=== PATIENT | female | born 1940 | race Caucasian/White ===

== ENCOUNTER 2019-11-25 21:28 | Emergency (ER) | payer MEDICARE, OTHER, SELFPAY ==
--- NOTE | 2019-11-25 21:38 | ED_ITS ---
Entered by Madina Pretty, acting as scribe for Dayami Conte DO HPI - General Adult General: Chief complaint: Altered Mental Status Stated complaint: low blood sugar Time Seen by Provider: 11/25/19 21:36 Source: patient and EMS Mode of arrival: EMS Limitations: no limitations History of Present Illness: HPI narrative: 79 yo f came to the er by ems for low blood sugar and low blood pressure. 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 Pt states that she does not have diabetes. Pt states that she has no energy. Pt states that she has not been able to eat for awhile due to diverticulitis. MD complaint: low blood sugar Onset (ago): week(s) Radiation: non-radiation Severity: moderate Relieving factors: none Exacerbating factors: none Associated symptoms: Deny chest pain, dyspnea, headache(s), malaise, nausea, rash or vomiting Treatments prior to arrival: none Review of Systems Const: Denies: malaise Eyes: Denies: change in vision, blurry vision, eye discharge or eye redness ENMT: Denies: throat pain, uvular edema, painful swallowing, mouth pain, dental pain, nasal congestion or facial/sinus pain Card: Denies: chest pain Resp: Denies: shortness of breath GI: Denies: nausea or vomiting : Denies: flank pain, difficulty urinating, painful urination, urinary frequency, urinary urgency or urinary hesitancy Musc: Denies: neck pain, back pain, extremity pain or extremity swelling Skin/Breast: Denies: rash Neuro: Denies: headache Psych: Denies: anxiety, depression, mood swings, panic attacks, sleeping less, suicidal ideation or homicidal ideation Endo: Denies: excessive urination, excessive thirst or tired all the time Mak/Lymph: Denies: easy bruising, petechiae or enlarged lymph nodes All/Imm: Denies: hives, throat swelling, facial swelling, acute wheezing or seasonal allergies PFSH ED PFSH: Statuses (acute, chronic, etc) shown below reflect problem list status as previously entered and may not be historically accurate Social History Smoking and tobacco status: former smoker Physical Exam Const: COMMON NORMALS: no apparent distress, oriented x3, no limitations, healthy appearing, alert and well nourished GENERAL APPEARANCE: cooperative, comfortable, well kempt and well developed ORIENTATION/CONSCIOUSNESS: Yes awake, Yes oriented to person, Yes oriented to place and Yes oriented to time HENMT: COMMON NORMALS: normocephalic, head/scalp atraumatic, hearing grossly normal bilaterally, external ears normal, EAC's normal, TM's normal bilaterally, external nose normal, nasal mucous membranes and turbinates normal, moist oral mucous membranes, oropharynx normal, dentition normal and gingiva normal HEAD & SCALP: normal to inspection, normocephalic and atraumatic FACE & SINUS: normal facial exam NOSE: external nose normal and nasal mucous membranes and turbinates normal EXTERNAL EAR: Yes external ears normal EXTERNAL AUDITORY CANAL: EAC's normal TYMPANIC MEMBRANE: TM's normal bilaterally MOUTH: oral and palatal mucosa normal, lip normal and tongue normal THROAT: no uvular edema Eye: COMMON NORMALS: PERRL, EOMs intact bilaterally, conjunctivae normal, no scleral icterus and normal visual grossman by confrontation GENERAL EYE: normal appearance of both eyes and normal light reflex VISUAL ACUITY: Yes acuity normal ALIGNMENT: Yes alignment normal PERIORBITAL: periorbital findings normal EYELID: eyelids normal CONJUNCTIVA: Yes conjunctivae normal S CLERA: sclerae normal PUPIL: Yes PERRL and Yes accommodation reflex normal DIRECT OPHTHALMOSCOPY: Yes normal light reflex Neck/C-Spine: COMMON NORMALS: full ROM, no lymphadenopathy, supple, no meningeal signs and no JVD GENERAL: Yes normal visual inspection CAROTIDS: Yes normal carotid upstroke CERVICAL SPINE: Yes cervical ROM normal Lymph: LYMPHATIC: no lymphadenopathy noted Chest: COMMONS NORMALS: inspection of chest normal CHEST: Yes symmetrical chest wall rise Resp: COMMON NORMALS: normal respiratory effort, no retractions, no use of accessory muscles and clear to auscultation bilaterally EFFORT & INSPECTION: Yes able to speak in complete sentences and Yes symmetric chest movement AUSCULTATION: clear to auscultation bilaterally Cardio: COMMON NORMALS: no JVD, regular rate, regular rhythm, S1 normal heart sound, S2 normal heart sound, no murmurs and peripheral pulses 2+ throughout RATE: regular rate RHYTHM: regular rhythm HEART SOUNDS: S1 normal and S2 normal PERIPHERAL PULSES: pulses 2+ throughout GI: COMMON NORMALS: normal to inspection, nondistended, normoactive bowel sounds and non-tender : COMMON NORMALS: Yes no CVA tenderness BLADDER/KIDNEY EXAM: Yes no CVA tenderness Back/Pelvis: COMMON NORMALS: no CVA tenderness, thoracic and lumbar spine normal to inspection, no thoracic nor lumbar tenderness and thoraco-lumbar ROM normal Extremity: COMMON NORMALS: normal to inspection, full ROM, normal capillary refill, no calf tenderness and no pedal edema Neuro: COMMON NORMALS: oriented x3, CN's II-XII intact bilaterally, moves all extremities, no focal motor deficits, no sensory deficits noted and gait normal SENSORIUM/ORIENTATION: Yes alert, Yes oriented to person, Yes oriented to place and Yes oriented to time MENINGEAL SIGNS: Yes no meningeal signs SPEECH: speech normal GAIT: Yes normal gait MOTOR EXAM: strength 5/5 throughout, no pronator drift and no tremor noted Psych: COMMON NORMALS: mental status grossly normal, thought process normal, cooperative, affect normal, speech normal and activity/motor behavior normal APPEARANCE: Yes well kempt SPEECH: Yes normal speech THOUGHT PROCESS: normal thought process THOUGHT CONTENT: Yes normal thought content INSIGHT: insight good Skin: COMMON NORMALS: no rashes or lesions noted, no wounds, skin turgor normal and no jaundice GENERAL SKIN EXAM: no rashes or lesions noted and turgor normal Course Vital Signs: Vital signs: Vital Signs Temperature 97.5 F L 11/25/19 21:41 Pulse Rate 107 H 11/25/19 21:41 Respiratory Rate 16 11/25/19 21:41 Blood Pressure 82/47 11/25/19 21:41 Pulse Oximetry 97 11/25/19 21:41 MDM - General Adult Lab Data: Labs: Lab Results 11/25/19 Range/Units 21:45 POC Glucose 75 (70-110) mg/dL Discharge Plan Discharge Condition: Stable Referrals: Amado Larry [Primary Care Provider] - Kirsty Howard [Family Provider] - Coding Level of Care Code ED Mine Expert for Chg Fwd Exam Problem Focused The documentation recorded by the Sukhwinder arce Stephanie Lyn, accurately reflects the service I personally performed and the decisions made by me, Dayami Conte, DO
--- NOTE | 2019-11-25 21:40 | XRR_ITS ---
PROCEDURE INFORMATION: Exam: XR Chest, 1 View Exam date and time: 11/25/2019 9:54 PM Age: 79 years old Clinical indication: Cough TECHNIQUE: Imaging protocol: XR of the chest Views: 1 view. COMPARISON: No relevant prior studies available. FINDINGS: Lungs: Unremarkable. No consolidation. There is mild diffuse fibrosis. There is hyperinflation compatible probable COPD. Pleural space: Unremarkable. No pleural effusion. No pneumothorax. Heart/Mediastinum: Unremarkable. No cardiomegaly. Bones/joints: Unremarkable. XR/XR chest 1V portable [id number] IMPRESSION: No acute findings.
[2019-11-25 21:41] VITALS: BP 82/47; PULSE 107; RESP 16; TEMP 36.4; O2SAT 97; BMI 26.6
--- NOTE | 2019-11-25 21:41 | ECG_ITS ---
Measurements Intervals [place] Rate: 101 P: 69 DE: 215 QRS: 72 QRSD: 146 T: -38 QT: 373 QTc: 486 SINUS TACHYCARDIA WITH FIRST DEGREE AV BLOCK POSSIBLE LEFT ATRIAL ENLARGEMENT [-0.1mV P WAVE IN V1/V2] RIGHT BUNDLE BRANCH BLOCK [120+ ms QRS DURATION, UPRIGHT V1, 40+ ms S IN I/aV I/aVL/V4/V5/V6] MARKED T-WAVE ABNORMALITY, CONSIDER ANTEROLATERAL ISCHEMIA [-0.5+ mV T WAVE IN I/aVL/V3-V6] MODERATE T-WAVE ABNORMALITY, CONSIDER INFERIOR ISCHEMIA [-0.1+ mV T WAVE IN II II/aVF] No previous ECG available for comparison Electronically Signed On 11-26-2019 19:16:29 BURRER HAND by Dori Gomez M.D. [email or web address]
[2019-11-25 21:48] LABS: Glucose Point of Care 75 mg/dL (70-110)
[2019-11-25 22:00] LABS: Basophils # 0.1 10^3/uL (0.0-0.1); Basophils % 0.2 %; Hematocrit 37.8 % (37.0-47.0); Lymphocytes # 1.7 10^3/uL (0.8-4.8); Lymphocytes % 6.3 %; Mean Corpuscular HGB Conc 31.7 g/dL (30.0-36.0); Mean Corpuscular Volume 88.3 fL (81-99); Mean Platelet Volume 11.3 fL (7.4-10.4); Monocytes # 0.2 10^3/uL (0.2-0.9); Monocytes % 0.9 %; Neutrophils % 87.2 %; Nucleated Red Blood Cells # 0.1 /100WBC; Nucleated Red Blood Cells % 0.2 %; Platelet Count 331 10^3/cmm (130-400); Red Blood Count 4.28 10^6/uL (4.1-5.3); Red Cell Distribution Width 14.9 % (12.1-15.1); White Blood Count 26.4 10^3/uL (4.0-10.0)
--- NOTE | 2019-11-25 22:06 | CTR_ITS ---
PROCEDURE INFORMATION: Exam: CT Abdomen And Pelvis Without Contrast Exam date and time: 11/25/2019 10:09 PM Age: 79 years old Clinical indication: Condition or disease; Other: Diverticulitis TECHNIQUE: Imaging protocol: Computed tomography of the abdomen and pelvis without contrast. Total DLP: 535.86 mGy-cm Radiation optimization: All CT scans at this facility use at least one of these dose optimization techniques: automated exposure control; mA and/or kV adjustment per patient size (includes targeted exams where dose is matched to clinical indication); or iterative reconstruction. COMPARISON: No relevant prior studies available. FINDINGS: Tubes, catheters and devices: A balloon bladder catheter is present. Mediastinum: A moderate hiatal hernia is present. Liver: There is a very large heterogeneous expansile mass in the left lobe of the liver measuring 16.1 by 8.7 by 19.7 cm. A few tiny hypodensities in the right lobe of the liver too small to characterize. No duct dilatation. Gallbladder and bile ducts: Normal. No calcified stones. No ductal dilation. Pancreas: Normal. No ductal dilation. Spleen: Normal. No splenomegaly. Adrenals: Normal. No mass. Kidneys and ureters: There is inflammatory perinephric stranding. Renal vascular calcifications versus nonobstructive nephrolithiasis is noted. No hydronephrosis. No obstructing calculi. Stomach and bowel: Mild diverticulosis is present in the distal colon. Mild wall thickening/colitis versus lack of distension of the descending and sigmoid colon is noted. The remaining loops of bowel have an appropriate appearance. Appendix: No evidence of appendicitis. Intraperitoneal space: Unremarkable. No free air. No significant fluid collection. Vasculature: There are numerous benign phleboliths in the pelvis. Severe atherosclerotic changes are noted in the aorta. 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 The left common iliac artery measures 2.6 cm. No abdominal aortic aneurysm. Lymph nodes: Unremarkable.No enlarged lymph nodes. Bladder: The bladder is decompressed. Reproductive: Unremarkable as visualized. Bones/joints: Osteopenia and moderate degenerative changes in the spine are noted. Soft tissues: Unremarkable. CT/CT abdomen pelvis wo con [id number] IMPRESSION: 1. Large septated heterogeneous mass in the left lobe of the liver measuring almost 20 cm in length. MRI would be most sensitive to characterize this large mass. 2. Mild wall thickening/colitis versus lack of distension of the descending and sigmoid colon is noted. No ileus or obstruction. No fluid collection or abscess. 3. 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 Radiation Dose CTDIVOL = (mGy): DLP = 535.86 (mGy-cm)
--- NOTE | 2019-11-25 22:07 | ED_ITS ---
HPI - Altered Mental Status General: Chief Complaint: Altered Mental Status Stated Complaint: low blood sugar Time Seen by Provider: 11/25/19 21:36 Source: patient and EMS Mode of arrival: EMS Limitations: no limitations PFSH ED PFSH: Statuses (acute, chronic, etc) shown below reflect problem list status as previously entered and may not be historically accurate Social History Smoking and tobacco status: former smoker Course ED course: 79-year-old female checked out to me by Dr. GIRALDO. This patient came in with altered mental status, that was mild. She is awake and talking, but mildly confused. She had a low blood pressure, 80s systolic on arrival. Initially she responded to a sepsis bolus, but pressure has sunk back down into the 80s. She has a white blood cell count of 26, lactic acid of 9.5. Her CT shows a 20 cm liver mass, likely an abscess as the source of her sepsis. We do not have interventional radiology services here this weekend. She would need CT-guided biopsy/drainage. She is received Levaquin here. We will start some Flagyl. We are starting Levophed, as her pressure is still low. We have spoken with the plant machinist at [facility] in [place], who is willing to take in transfer. Air services are not available. Consultations: Time: 00:40 Consultation #2: Michelle [facility] ICU Vital Signs: Vital signs: Vital Signs Temperature 97.5 F L 11/25/19 21:41 Pulse Rate 84 11/26/19 03:56 Respiratory Rate 20 H 11/26/19 03:56 Blood Pressure 109/60 11/26/19 03:56 Pulse Oximetry 96 11/26/19 03:56 MDM - Altered Mental Status Lab Data: Labs: Lab Results 11/25/19 11/25/19 11/25/19 Range/Units 21:36 21:45 22:22 WBC 26.4 H (4.0-10.0) 10^3/ uL RBC 4.28 (4.1-5.3) 10^6/u L Hgb 12.0 (11.5-15.3) g/dL Hct 37.8 (37.0-47.0) % MCV 88.3 (81-99) fL MCH 28.0 (28.0-34.0) pg MCHC 31.7 (30.0-36.0) g/dL RDW 14.9 (12.1-15.1) % Plt Count 331 (130-400) 10^3/c mm MPV 11.3 H (7.4-10.4) fL Neut % (Auto) 87.2 % Lymph % (Auto) 6.3 % [place] % (Auto) 0.9 % Eos % (Auto) 0.0 % Baso % (Auto) 0.2 % Neut # (Auto) 23.0 H (1.8-7.7) 10^3/u L Lymph # (Auto) 1.7 (0.8-4.8) 10^3/u L [place] # (Auto) 0.2 (0.2-0.9) 10^3/u L Eos # (Auto) 0.0 (0.0-0.8) 10^3/u L Baso # (Auto) 0.1 (0.0-0.1) 10^3/u L Nucleated RBC % (a uto) 0.2 % Nucleated RBCs # 0.1 /100WBC Specimen Type Sample Site ABG pH (7.35-7.45) ABG pCO2 (35-45) mmHg ABG pO2 (80.0-100.0) mmH g ABG HCO3 (22-26) mmol/L ABG Base Excess (-2.0-2.0) mmol/ L Mehran Test Hematocrit (37-47) % Internet Manager ID Sodium 130 L (136-145) mmol/L Potassium 4.1 (3.5-5.1) mmol/L Chloride 93 L (98-107) mmol/L Carbon Dioxide 12 L (22-29) mmol/L Anion Gap 29.1 H (5-19) BUN 62 H (8-23) mg/dL Creatinine 1.8 H (0.5-0.9) mg/dL Glucose 95 (74-106) mg/dL POC Glucose 75 (70-110) mg/dL Lactate (0.5-2.2) mmol/L Calcium 8.4 L (8.8-10.2) mg/Dl Magnesium 2.2 (1.7-2.3) mg/dL Total Bilirubin 0.6 (0.15-1.2) mg/dL AST 327 H (0-32) U/L ALT 125 H (0-33) U/L Alkaline Phosphata se 275 H (35-105) IU/L Ammonia (11-51) umol/L Total Protein 6.2 L (6.6-8.7) g/dL Albumin 1.8 L (3.5-5.2) g/dL Globulin 4.4 (1.3-4.6) g/dL TSH 5.50 H (0.27-4.20) uIU/ mL Urine Color (Yellow) Urine Appearance (CLEAR) Urine pH (5-7) Ur Specific Gravit y (1.005-1.030) Urine Protein (Negative) Urine Glucose (UA) (Normal) Urine Ketones (Negative) Urine Occult Blood (Negative) Urine Nitrate (Negative) Urine Bilirubin (NEGATIVE) Prot Sulfosalicyli c Acd Urine Urobilinogen (Negative) mg/dL Ur Leukocyte Mey ase (Negative) Urine RBC (0-2) /hpf Urine WBC (0-5) /hpf Ur Squamous Epith Cells (0-5) Amorphous Sediment Urine Bacteria (NONE) Serum Ketones (Negative) Influenza Type A A g (Negative) POC Influenza B Ag (Negative) 11/25/19 11/25/19 11/25/19 Range/Units 22:22 22:22 22:22 WBC (4.0-10.0) 10^3/ uL RBC (4.1-5.3) 10^6/u L Hgb (11.5-15.3) g/dL Hct (37.0-47.0) % MCV (81-99) fL MCH (28.0-34.0) pg MCHC (30.0-36.0) g/dL RDW (12.1-15.1) % Plt Count (130-400) 10^3/c mm MPV (7.4-10.4) fL Neut % (Auto) % Lymph % (Auto) % [place] % (Auto) % Eos % (Auto) % Baso % (Auto) % Neut # (Auto) (1.8-7.7) 10^3/u L Lymph # (Auto) (0.8-4.8) 10^3/u L [place] # (Auto) (0.2-0.9) 10^3/u L Eos # (Auto) (0.0-0.8) 10^3/u L Baso # (Auto) (0.0-0.1) 10^3/u L Nucleated RBC % (a uto) % Nucleated RBCs # /100WBC Specimen Type Sample Site ABG pH (7.35-7.45) ABG pCO2 (35-45) mmHg ABG pO2 (80.0-100.0) mmH g ABG HCO3 (22-26) mmol/L ABG Base Excess (-2.0-2.0) mmol/ L Mehran Test Hematocrit (37-47) % Internet Manager ID Sodium (136-145) mmol/L Potassium (3.5-5.1) mmol/L Chloride (98-107) mmol/L Carbon Dioxide (22-29) mmol/L Anion Gap (5-19) BUN (8-23) mg/dL Creatinine (0.5-0.9) mg/dL Glucose (74-106) mg/dL POC Glucose (70-110) mg/dL Lactate 9.5 H* (0.5-2.2) mmol/L Calcium (8.8-10.2) mg/Dl Magnesium (1.7-2.3) mg/dL Total Bilirubin (0.15-1.2) mg/dL AST (0-32) U/L ALT (0-33) U/L Alkaline Phosphata se (35-105) IU/L Ammonia 46 (11-51) umol/L Total Protein (6.6-8.7) g/dL Albumin (3.5-5.2) g/dL Globulin (1.3-4.6) g/dL TSH (0.27-4.20) uIU/ mL Urine Color (Yellow) Urine Appearance (CLEAR) Urine pH (5-7) Ur Specific Gravit y (1.005-1.030) Urine Protein (Negative) Urine Glucose (UA) (Normal) Urine Ketones (Negative) Urine Occult Blood (Negative) Urine Nitrate (Negative) Urine Bilirubin (NEGATIVE) Prot Sulfosalicyli c Acd Urine Urobilinogen (Negative) mg/dL Ur Leukocyte Mey ase (Negative) Urine RBC (0-2) /hpf Urine WBC (0-5) /hpf Ur Squamous Epith Cells (0-5) Amorphous Sediment Urine Bacteria (NONE) Serum Ketones Negative (Negative) Influenza Type A A g (Negative) POC Influenza B Ag (Negative) 11/25/19 11/25/19 11/26/19 Range/Units 22:30 23:20 00:07 WBC (4.0-10.0) 10^3/ uL RBC (4.1-5.3) 10^6/u L Hgb (11.5-15.3) g/dL Hct (37.0-47.0) % MCV (81-99) fL MCH (28.0-34.0) pg MCHC (30.0-36.0) g/dL RDW (12.1-15.1) % Plt Count (130-400) 10^3/c mm MPV (7.4-10.4) fL Neut % (Auto) % Lymph % (Auto) % [place] % (Auto) % Eos % (Auto) % Baso % (Auto) % Neut # (Auto) (1.8-7.7) 10^3/u L Lymph # (Auto) (0.8-4.8) 10^3/u L [place] # (Auto) (0.2-0.9) 10^3/u L Eos # (Auto) (0.0-0.8) 10^3/u L Baso # (Auto) (0.0-0.1) 10^3/u L Nucleated RBC % (a uto) % Nucleated RBCs # /100WBC Specimen Type Arterial Sample Site Radial, right ABG pH 7.37 (7.35-7.45) ABG pCO2 21.0 L (35-45) mmHg ABG pO2 75.7 L (80.0-100.0) mmH g ABG HCO3 12.1 L (22-26) mmol/L ABG Base Excess -11.3 L (-2.0-2.0) mmol/ L Mehran Test Pos Hematocrit 36.1 L (37-47) % Internet Manager ID [email or web address] Sodium (136-145) mmol/L Potassium (3.5-5.1) mmol/L Chloride (98-107) mmol/L Carbon Dioxide (22-29) mmol/L Anion Gap (5-19) BUN (8-23) mg/dL Creatinine (0.5-0.9) mg/dL Glucose (74-106) mg/dL POC Glucose (70-110) mg/dL Lactate (0.5-2.2) mmol/L Calcium (8.8-10.2) mg/Dl Magnesium (1.7-2.3) mg/dL Total Bilirubin (0.15-1.2) mg/dL AST (0-32) U/L ALT (0-33) U/L Alkaline Phosphata se (35-105) IU/L Ammonia (11-51) umol/L Total Protein (6.6-8.7) g/dL Albumin (3.5-5.2) g/dL Globulin (1.3-4.6) g/dL TSH (0.27-4.20) uIU/ mL Urine Color Brown (Yellow) Urine Appearance Cloudy (CLEAR) Urine pH 9 H (5-7) Ur Specific Gravit y 1.015 (1.005-1.030) Urine Protein 1+ H (Negative) Urine Glucose (UA) Norm (Normal) Urine Ketones Negative (Negative) Urine Occult Blood 3+ H (Negative) Urine Nitrate Negative (Negative) Urine Bilirubin 1+ H (NEGATIVE) Prot Sulfosalicyli c Acd Positive Urine Urobilinogen 4+ H (Negative) mg/dL Ur Leukocyte Mey ase 2+ H (Negative) Urine RBC 5-10 H (0-2) /hpf Urine WBC 25-40 H (0-5) /hpf Ur Squamous Epith Cells 0-4 H (0-5) Amorphous Sediment 1+ Urine Bacteria 4+ H (NONE) Serum Ketones (Negative) Influenza Type A A g Negative (Negative) POC Influenza B Ag Negative (Negative) 11/26/19 11/26/19 Range/Units 00:10 01:02 WBC (4.0-10.0) 10^3/ uL RBC (4.1-5.3) 10^6/u L Hgb (11.5-15.3) g/dL Hct (37.0-47.0) % MCV (81-99) fL MCH (28.0-34.0) pg MCHC (30.0-36.0) g/dL RDW (12.1-15.1) % Plt Count (130-400) 10^3/c mm MPV (7.4-10.4) fL Neut % (Auto) % Lymph % (Auto) % [place] % (Auto) % Eos % (Auto) % Baso % (Auto) % Neut # (Auto) (1.8-7.7) 10^3/u L Lymph # (Auto) (0.8-4.8) 10^3/u L [place] # (Auto) (0.2-0.9) 10^3/u L Eos # (Auto) (0.0-0.8) 10^3/u L Baso # (Auto) (0.0-0.1) 10^3/u L Nucleated RBC % (a uto) % Nucleated RBCs # /100WBC Specimen Type Sample Site ABG pH (7.35-7.45) ABG pCO2 (35-45) mmHg ABG pO2 (80.0-100.0) mmH g ABG HCO3 (22-26) mmol/L ABG Base Excess (-2.0-2.0) mmol/ L Mehran Test Hematocrit (37-47) % Internet Manager ID Sodium (136-145) mmol/L Potassium (3.5-5.1) mmol/L Chloride (98-107) mmol/L Carbon Dioxide (22-29) mmol/L Anion Gap (5-19) BUN (8-23) mg/dL Creatinine (0.5-0.9) mg/dL Glucose (74-106) mg/dL POC Glucose 85 84 (70-110) mg/dL Lactate (0.5-2.2) mmol/L Calcium (8.8-10.2) mg/Dl Magnesium (1.7-2.3) mg/dL Total Bilirubin (0.15-1.2) mg/dL AST (0-32) U/L ALT (0-33) U/L Alkaline Phosphata se (35-105) IU/L Ammonia (11-51) umol/L Total Protein (6.6-8.7) g/dL Albumin (3.5-5.2) g/dL Globulin (1.3-4.6) g/dL TSH (0.27-4.20) uIU/ mL Urine Color (Yellow) Urine Appearance (CLEAR) Urine pH (5-7) Ur Specific Gravit y (1.005-1.030) Urine Protein (Negative) Urine Glucose (UA) (Normal) Urine Ketones (Negative) Urine Occult Blood (Negative) Urine Nitrate (Negative) Urine Bilirubin (NEGATIVE) Prot Sulfosalicyli c Acd Urine Urobilinogen (Negative) mg/dL Ur Leukocyte Mey ase (Negative) Urine RBC (0-2) /hpf Urine WBC (0-5) /hpf Ur Squamous Epith Cells (0-5) Amorphous Sediment Urine Bacteria (NONE) Serum Ketones (Negative) Influenza Type A A g (Negative) POC Influenza B Ag (Negative) Critical Care Time Critical Care Time: Critical Care Time: Yes Total Critical Care Time: 90 Attestation: This case had a high probability of a clinically significant, sudden, or life threatening deterioration of this patient's condition which required my full and direct attention, intervention and personal management. Discharge Plan Discharge Patient Disposition: Xfer Other Clinical Impression: Liver mass, left lobe Sepsis Qualifiers: Sepsis type: sepsis due to unspecified organism Sepsis acute organ dysfunction status: unspecified Qualified Code(s): A41.9 - Sepsis, unspecified organism Condition: Critical Discharge Orders: Transfer Out of Facility (Order); Ordered 11/26/19 Ordered By: Chacho Wright Referrals: Kirsty Howard [Family Provider] - Amado Larry [Primary Care Provider] - Discharge Date/Time: 11/26/19 03:57 Coding Level of Care Code ED Catering Barista for Bob Edmonds
[2019-11-25 22:22] LABS: Slide Review Slide Review Perform
--- NOTE | 2019-11-25 22:23 | CTR_ITS ---
PROCEDURE INFORMATION: Exam: CT Head Without Contrast Exam date and time: 11/25/2019 10:30 PM Age: 79 years old Clinical indication: Altered mental status/memory loss; Confusion or disorientation; Additional info: AMS TECHNIQUE: Imaging protocol: Computed tomography of the head without contrast. Total DLP: 827.14 mGy-cm Radiation optimization: All CT scans at this facility use at least one of these dose optimization techniques: automated exposure control; mA and/or kV adjustment per patient size (includes targeted exams where dose is matched to clinical indication); or iterative reconstruction. COMPARISON: No relevant prior studies available. FINDINGS: Brain: There is diffuse volume loss and periventricular low-density compatible with small-vessel disease changes. No edema or mass effect. Ventricles: Normal. No ventriculomegaly. Bones/joints: Unremarkable. No acute fracture. Sinuses: There is patchy opacification of the right maxillary sinus. The remaining sinuses are clear. Mastoid air cells: Visualized mastoid air cells are well aerated. Soft tissues: Unremarkable. Other findings: No acute hemorrhage. CT/CT head wo con* [id number] IMPRESSION: 1. No acute intracranial abnormality. 2. Patchy opacification of the right maxillary sinus. Radiation Dose CTDIVOL = (mGy): DLP = 827.14 (mGy-cm)
[2019-11-25] MEDS: D5-NS 0.45% + KCL 20 mEq 20 MEQ/1,000 ML BAG 150 MEQ IV (22:25)
[2019-11-25 22:46] LABS: Ketone (Acetest) Serum Negative (Negative)
[2019-11-25 22:46] LABS: ABG PH Result 7.37 (7.35-7.45); Arterial Blood Gas Hematocrit 36.1 % (37-47); Base Excess ABG -11.3 mmol/L (-2.0-2.0); Blood Gas Allen Test Pos; Blood Gas Sample Site Radial, right; Blood Gas Sample Type Arterial; HCO3 ABG 12.1 mmol/L (22-26); PO2 ABG 75.7 mmHg (80.0-100.0)
[2019-11-25 22:55] LABS: Ammonia 46 umol/L (11-51)
[2019-11-25 23:06] LABS: Alanine Aminotransferase 125 U/L (0-33); Albumin Level 1.8 g/dL (3.5-5.2); Alkaline Phosphatase 275 IU/L (35-105); Anion Gap 29.1 (5-19); Aspartate Amino Transferase 327 U/L (0-32); Blood Urea Nitrogen 62 mg/dL (8-23); Calcium 8.4 mg/Dl (8.8-10.2); Carbon Dioxide 12 mmol/L (22-29); Chloride 93 mmol/L (98-107); Globulin 4.4 g/dL (1.3-4.6); Glucose 95 mg/dL (74-106); Magnesium 2.2 mg/dL (1.7-2.3); Potassium 4.1 mmol/L (3.5-5.1); Sodium 130 mmol/L (136-145); Total Bilirubin 0.6 mg/dL (0.15-1.2); Total Protein 6.2 g/dL (6.6-8.7)
[2019-11-25 23:30] VITALS: BP 85/53; PULSE 87; RESP 18; O2SAT 98
[2019-11-25 23:33] LABS: Lactate (Lactic Acid level) 9.5 mmol/L (0.5-2.2)
--- NOTE | 2019-11-25 23:38 | PC.NURSE ---
Patient had positive stool hemoccult, Dr. Wright advised
[2019-11-25 23:47] LABS: Urine Color Brown (Yellow)
[2019-11-25 23:48] LABS: Add Urine Microscopic? YES; Bacteria Urine 4+; Bilirubin Urine 1+ (NEGATIVE); Blood Urine 3+ (Negative); Glucose Urine UA Norm (Normal); Ketones Urine Negative (Negative); Leukocyte Esterase Urine 2+ (Negative); Nitrate Urine Negative (Negative); Protein Urine 1+ (Negative); Specific Gravity, Urine 1.015 (1.005-1.030); Squamous Epithelial Cell Urine 0-4 (0-5); Sulfosalicylic Acid Urine Positive; Urine Appearance Cloudy (CLEAR); Urobilinogen Urine 4+ mg/dL (Negative); WBC Urine 25-40 /hpf (0-5); pH Urine 9 (5-7)
[2019-11-25 23:49] LABS: Add Urine Culture? Yes; Amorphous Sediment Urine 1+
[2019-11-26] VITALS (8 sets, daily range): BP systolic 79–109; BP diastolic 32–60; PULSE 76–97; RESP 16–20; O2SAT 94–97
[2019-11-26] MEDS: sodium chloride 0.9% 2,177.25 ML 2177.3 ML IV (00:11)
[2019-11-26 00:13] LABS: Glucose Point of Care 85 mg/dL (70-110)
[2019-11-26] MEDS: levofloxacin-dextrose 5 % 500 MG/100 ML PREMIX 100 MG IV (00:18)
--- NOTE | 2019-11-26 00:19 | PC.NURSE ---
glucose 91
--- NOTE | 2019-11-26 00:20 | PC.NURSE ---
glucose 85
--- NOTE | 2019-11-26 00:21 | PC.NURSE ---
patient bedding changed due to being soiled
[2019-11-26 00:53] LABS: Influenza A by IFA Negative (Negative); Influenza B by IFA Negative (Negative)
--- NOTE | 2019-11-26 01:03 | PC.NURSE ---
glucose 84
[2019-11-26 01:07] LABS: Glucose Point of Care 84 mg/dL (70-110)
[2019-11-26] MEDS: fentaNYL 50 mcg/mL INJ 2mL 100 MCG IVP (01:45)
--- NOTE | 2019-11-26 02:05 | XRR_ITS ---
PROCEDURE INFORMATION: Exam: XR Chest, 1 View Exam date and time: 11/26/2019 2:13 AM Age: 79 years old Clinical indication: Device placement; Other: Central line; Additional info: Post-central line placement TECHNIQUE: Imaging protocol: XR of the chest Views: 1 view. COMPARISON: CR XR chest 1V portable [id number] 11/25/2019 9:44 PM FINDINGS: Tubes, catheters and devices: There is a right internal jugular vein central venous line present with its tip at the level of the right atrium. Lungs: There is a background of emphysema and parenchymal fibrosis. Pleural space: Unremarkable. No pleural effusion. No pneumothorax. Heart/Mediastinum: Unremarkable. No cardiomegaly. Bones/joints: Unremarkable. XR/XR chest 1V portable [id number] IMPRESSION: 1. The right internal jugular vein central venous line tip is in the right atrium. 2. Background of emphysema and parenchymal fibrosis.
--- NOTE | 2019-11-26 02:09 | PC.NURSE ---
Dr. Wright placed triple lumen central line in right IJ with ultrasound guidance, sterile technique used, patient tolerated well, xray confirmation pending
--- NOTE | 2019-11-26 02:30 | PC.NURSE ---
0136 CALLED REPORT TO TERRNECE WEIR RN AT [facility]
--- NOTE | 2019-11-26 03:45 | PC.NURSE ---
Report given to Development Chemist
== END 2019-11-26 03:57 | disposition other institution (70) ==
PROVIDERS: Emergency Medicine; Emergency Provider Emergency Medicine; Family Provider Nurse Practitioner Family; PCP Family Medicine
DX: A41.9 Sepsis, unspecified organism (principal); R16.0 Hepatomegaly, not elsewhere classified; Z87.891 Personal history of nicotine dependence
CPT/HCPCS: 36416; 36600; 51702; 70450; 71045; 74176; 80053; 81003; 82009; 82140; 82274; 82803; 82962; 83605; 83630; 83735; 84443; 85025; 87077; 87086; 87186; 87493; 87505; 87804; 93005; 96360; 96361; 96365; 96374; 99284; J1956; J3010; J7030

== ENCOUNTER 2019-12-14 21:16 | Inpatient (IN) | payer MEDICARE, OTHER, SELFPAY ==
--- NOTE | 2019-12-14 21:20 | ED_ITS ---
Entered by Karen Escobar, acting as scribe for HPI - Chest Pain General: Chief Complaint: Chest Pain Stated Complaint: SOB/ CHEST PAIN Time Seen by Provider: 12/14/19 21:18 Source: patient and EMS Mode of arrival: ambulatory Limitations: no limitations History of Present Illness: HPI narrative: Chelsey is a nice 79-year-old female who comes in after she got [facility]. She states the symptoms lasted for 30 minutes but resolved after she was given aspirin and placed on oxygen by EMS. She denies anything similar in the past. She is aware of anything that made her symptoms better or worse. Patient denies any history of heart problems or congestive heart failure but she does have a history of COPD. She denies any cough or wheezing. 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) Timing of current episode: now resolved Prior episodes: No Onset: during rest Pain location: substernal Severity: mild Quality: heaviness and other (pressure) Relieving factors: nothing Exacerbating factors: nothing Context: recent surgery (liver surgery) Associated symptoms: Reports dyspnea; Deny abdominal pain, diaphoresis, fever(s), nausea, palpitations, syncope or vomiting Treatment prior to arrival: oxygen Review of Systems General: Reports: other (negative unless marked) Const: Denies: fever, chills, body aches, fatigue, malaise or diaphoresis Eyes: Denies: change in vision or blurry vision ENMT: Denies: throat pain, painful swallowing, hoarseness, ear pain, ear discharge, Change in hearing or nasal discharge Card: Denies: chest pain, palpitations, irregular heart rhythm, syncope, pre- syncope, shortness of breath on exertion or shortness of breath when lying down Resp: Reports: shortness of breath GI: Denies: abdominal pain, nausea, vomiting, vomiting blood, coffee grounds in vomit, diarrhea, constipation, cramping, blood in stool or black tarry stool : Denies: flank pain, painful urination, urinary frequency, urinary urgency, decreased urine ouput, urinary incontinence or blood in urine Musc: Denies: neck pain, back pain, extremity pain, extremity swelling, joint pain, joint swelling, joint warmth or joint stiffness Skin/Breast: Denies: rash, skin tenderness or yellow skin Neuro: Denies: headache, numbness in extremities, weakness in extremities, changes in sensation, lack of coordination, difficulty walking, dizziness, vertigo or confusion Endo: Denies: excessive thirst, tired all the time, cold intolerance, excessive sweating, flushing or hot flashes Mak/Lymph: Denies: easy bruising, easy bleeding, petechiae or enlarged lymph nodes All/Imm: Denies: acute wheezing PFSH ED PFSH: Statuses (acute, chronic, etc) shown below reflect problem list status as previously entered and may not be historically accurate Medical History (Updated 12/15/19 @ 01:09 by Anabela Merchant MD) Abnormal findings on diagnostic imaging of heart and coronary circulation (Acute) Abscess of liver (Acute) Aneurysm of iliac artery (Acute) Bacteremia (Acute) Chronic obstructive pulmonary disease, unspecified (Acute) Dyslipidemia (Acute) Glaucoma (Acute) Hypoglycemia, unspecified (Acute) Hypokalemia (Acute) Internal hemorrhoids (Acute) Leukemoid reaction (Acute) Liver abscess (Acute) Nonspecific elevation of levels of transaminase and lactic acid dehydrogenase [ldh] (Acute) Osteoporosis (Acute) Ovarian cancer (Acute) Pulmonary fibrosis, unspecified (Acute) Streptococcal infection, unspecified site (Acute) Syncope (Acute) Surgical History (Updated 12/14/19 @ 23:58 by Anabela Merchant MD) H/O hysterectomy with oophorectomy (Acute) H/O removal of cyst (Acute) Hx of cholecystectomy (Acute) Family History (Updated 12/14/19 @ 23:59 by Anabela Merchant MD) Father CAD (coronary artery disease) Social History (Updated 12/14/19 @ 23:58 by Anabela Merchant MD) Smoking and tobacco status: current every day smoker Alcohol intake: never Substance/Drug Use: never Housing: [facility] Physical Exam Const: COMMON NORMALS: no apparent distress, oriented x3, no limitations, healthy appearing and well nourished EXAM LIMITATIONS: no altered mental status GENERAL APPEARANCE: cooperative, well kempt and well developed ORIENTATION/CONSCIOUSNESS: Yes awake HENMT: COMMON NORMALS: normocephalic, head/scalp atraumatic, hearing grossly normal bilaterally, external ears normal, EAC's normal, external nose normal and moist oral mucous membranes HEAD & SCALP: normal to inspection, normocephalic and atraumatic FACE & SINUS: normal facial exam and face symmetric NOSE: external nose normal and nares normal EXTERNAL EAR: Yes external ears normal EXTERNAL AUDITORY CANAL: EAC's normal MOUTH: oral and palatal mucosa normal and tongue normal Eye: COMMON NORMALS: PERRL, EOMs intact bilaterally, conjunctivae normal and no scleral icterus GENERAL EYE: normal appearance of both eyes and normal light reflex CONJUNCTIVA: Yes conjunctivae normal SCLERA: sclerae normal CORNEA: Yes corneas normal PUPIL: Yes PERRL DIRECT OPHTHALMOSCOPY: Yes normal light reflex Neck/C-Spine: COMMON NORMALS: full ROM, no lymphadenopathy, supple, no meningeal signs and no JVD GENERAL: Yes normal visual inspection and Yes t rachea midline CERVICAL SPINE: Yes cervical ROM normal Chest: COMMONS NORMALS: inspection of chest normal and palpation of chest normal Resp: COMMON NORMALS: normal respiratory effort, no retractions, no use of accessory muscles and clear to auscultation bilaterally EFFORT & INSPECTION: Yes able to speak in complete sentences AUSCULTATION: clear to auscultation bilaterally Cardio: COMMON NORMALS: no JVD, regular rate, regular rhythm, S1 normal heart sound, S2 normal heart sound, no gallops, no clicks, no murmurs and no rub JUGULAR VENOUS DISTENTION: no JVD RATE: regular rate RHYTHM: regular rhythm HEART SOUNDS: S1 normal and S2 normal GI: COMMON NORMALS: soft to palpation, non-tender, no hepatosplenomegaly and no masses INSPECTION: Yes normal to inspection PALPATION: Yes soft and Yes no hepatosplenomegaly : COMMON NORMALS: Yes no CVA tenderness BLADDER/KIDNEY EXAM: Yes no CVA t enderness Back/Pelvis: COMMON NORMALS: no CVA tenderness, thoracic and lumbar spine normal to inspection, no thoracic nor lumbar tenderness and thoraco-lumbar ROM normal Extremity: COMMON NORMALS: normal to inspection, full ROM, normal capillary refill, no joint enlargement, no clubbing, cyanosis or edema and no calf tenderness Neuro: COMMON NORMALS: oriented x3, CN's II-XII intact bilaterally, moves all extremities, no focal motor deficits and no sensory deficits noted MENINGEAL SIGNS: Yes no meningeal signs Psych: COMMON NORMALS: mental status grossly normal, thought process normal, cooperative, affect normal, speech normal and activity/motor behavior normal APPEARANCE: Yes well kempt SPEECH: Yes normal speech THOUGHT PROCESS: normal thought process Skin: COMMON NORMALS: no rashes or lesions noted, skin turgor normal, no jaundice, no petechiae and no mottling GENERAL SKIN EXAM: no rashes or lesions noted and turgor normal Course Vital Signs: Vital signs: Vital Signs Temperature 98.2 F 12/15/19 01:40 Pulse Rate 70 12/15/19 02:30 Respiratory Rate 16 12/15/19 02:30 Blood Pressure 160/75 12/15/19 01:40 Pulse Oximetry 97 12/15/19 02:30 MDM - Chest Pain MDM Narrative: Medical decision making narrative: Chelsey is a nice 79-year-old female who comes in with chest pain or shortness of breath. She has a heart score of 8. I have reviewed the case in full with Dr. Merchant and he agrees to admit for further evaluation and care. Dr. Merchant agrees with d-dimer as the patient has recently had surgery. If positive he will follow-up on CTA if the patient is on the floor. Lab Data: Labs: Lab Results 12/14/19 12/14/19 12/14/19 Range/Units 21:35 21:35 21:35 WBC 6.7 (4.0-10.0) 10^3/ uL RBC 3.14 L (4.1-5.3) 10^6/u L Hgb 8.9 L (11.5-15.3) g/dL Hct 28.7 L (37.0-47.0) % MCV 91.4 (81-99) fL MCH 28.3 (28.0-34.0) pg MCHC 31.0 (30.0-36.0) g/dL RDW 18.1 H (12.1-15.1) % Plt Count 342 (130-400) 10^3/c mm MPV 10.9 H (7.4-10.4) fL Neut % (Auto) 65.1 % Lymph % (Auto) 21.0 % [place] % (Auto) 9.8 % Eos % (Auto) 1.9 % Baso % (Auto) 1.8 % Neut # (Auto) 4.4 (1.8-7.7) 10^3/u L Lymph # (Auto) 1.4 (0.8-4.8) 10^3/u L [place] # (Auto) 0.7 (0.2-0.9) 10^3/u L Eos # (Auto) 0.1 (0.0-0.8) 10^3/u L Baso # (Auto) 0.1 (0.0-0.1) 10^3/u L Nucleated RBC % (a uto) 0 % Nucleated RBCs # 0.0 /100WBC D-Dimer (0-0.59) ug/mIFE U Sodium 140 (136-145) mmol/L Potassium 3.8 (3.5-5.1) mmol/L Chloride 103 (98-107) mmol/L Carbon Dioxide 29 (22-29) mmol/L Anion Gap 11.8 (5-19) BUN 11 (8-23) mg/dL Creatinine 0.7 (0.5-0.9) mg/dL Glucose 143 H (74-106) mg/dL Calcium 8.2 L (8.5-10.5) mg/dL Magnesium 1.2 L (1.7-2.3) mg/dL Total Bilirubin 0.2 (0.15-1.2) mg/dL AST 29 (0-32) U/L ALT 22 (0-33) U/L Alkaline Phosphata se 109 H (35-105) IU/L Troponin T Baselin e 33 H (0-10) ng/mL Troponin T 120 Min [place] (0-10) ng/mL Delta Troponin T (0-10) ABS# NT-Pro-B Natriuret Pep 5774 H (0-450) pg/mL Total Protein 6.4 L (6.6-8.7) g/dL Albumin 2.0 L (3.5-5.2) g/dL Globulin 4.4 (1.3-4.6) g/dL Lipase 26 (13-60) U/L 12/14/19 12/14/19 Range/Units 21:35 23:27 WBC (4.0-10.0) 10^3/ uL RBC (4.1-5.3) 10^6/u L Hgb (11.5-15.3) g/dL Hct (37.0-47.0) % MCV (81-99) fL MCH (28.0-34.0) pg MCHC (30.0-36.0) g/dL RDW (12.1-15.1) % Plt Count (130-400) 10^3/c mm MPV (7.4-10.4) fL Neut % (Auto) % Lymph % (Auto) % [place] % (Auto) % Eos % (Auto) % Baso % (Auto) % Neut # (Auto) (1.8-7.7) 10^3/u L Lymph # (Auto) (0.8-4.8) 10^3/u L [place] # (Auto) (0.2-0.9) 10^3/u L Eos # (Auto) (0.0-0.8) 10^3/u L Baso # (Auto) (0.0-0.1) 10^3/u L Nucleated RBC % (a uto) % Nucleated RBCs # /100WBC D-Dimer 3.52 H (0-0.59) ug/mIFE U Sodium (136-145) mmol/L Potassium (3.5-5.1) mmol/L Chloride (98-107) mmol/L Carbon Dioxide (22-29) mmol/L Anion Gap (5-19) BUN (8-23) mg/dL Creatinine (0.5-0.9) mg/dL Glucose (74-106) mg/dL Calcium (8.5-10.5) mg/dL Magnesium (1.7-2.3) mg/dL Total Bilirubin (0.15-1.2) mg/dL AST (0-32) U/L ALT (0-33) U/L Alkaline Phosphata se (35-105) IU/L Troponin T Baselin e (0-10) ng/mL Troponin T 120 Min [place] 44.47 H (0-10) ng/mL Delta Troponin T 11.47 H* (0-10) ABS# NT-Pro-B Natriuret Pep (0-450) pg/mL Total Protein (6.6-8.7) g/dL Albumin (3.5-5.2) g/dL Globulin (1.3-4.6) g/dL Lipase (13-60) U/L Discharge Plan Discharge Patient Disposition: Placed in Observation Admit Provider: Anabela Merchant Clinical Impression: Chest pain Qualifiers: Chest pain type: unspecified Qualified Code(s): R07.9 - Chest pain, unspecified Discharge Date/Time: 12/15/19 01:21 Coding Level of Care Code ED Manager Gas for Chg Fwd Exam Problem Focused The documentation recorded by the Shawn arce Bridget Annette, accurately reflects the service I personally performed and the decisions made by Brian urbina Eli N Dec 14, 2019 21:16
--- NOTE | 2019-12-14 21:22 | XR_ITS ---
WS: [id number] CHEST XRAY TECHNIQUE: Portable chest. CLINICAL INFORMATION: cough COMPARISON: November 26, 2019 FINDINGS: Right PICC line with tip in the proximal SVC. Heart: Cardiomegaly Aortic calcification Lungs: Chronic emphysematous changes. Small bilateral pleural effusions. Slight infiltrate or atelect asis left lung base medially. Bones: Normal visualized bony structures. XR/XR chest 1V portable [id number] IMPRESSION: 1. Retrocardiac infiltrate or atelectasis. Tiny bilateral pleural effusions. 2. Right PICC line with tip in the proximal SVC.
--- NOTE | 2019-12-14 21:23 | ECG_ITS ---
Measurements Intervals [place] Rate: 92 P: 62 OK: 206 QRS: -8 QRSD: 128 T: -34 QT: 393 QTc: 487 SINUS RHYTHM POSSIBLE LEFT ATRIAL ENLARGEMENT [-0.1mV P WAVE IN V1/V2] INDETERMINATE AXIS RIGHT BUNDLE BRANCH BLOCK [120+ ms QRS DURATION, UPRIGHT V1, 40+ ms S IN I/ I/aVL/V4/V5/V6] Compared to ECG 11/25/2019 21:42:20 Indeterminate axis now present Sinus tachycardia no longer present First degree AV block no longer present T-wave abnormality no longer present Possible ischemia no longer present Electronically Signed On 12-15-2019 15:54:16 MAT TESTER by Osmany Charles M.D. [id number]
[2019-12-14 21:34] VITALS: BP 148/77; PULSE 88; RESP 18; TEMP 36.6; O2SAT 97; BMI 23.1
[2019-12-14 21:39] LABS: Basophils # 0.1 10^3/uL (0.0-0.1); Basophils % 1.8 %; Eosinophils # 0.1 10^3/uL (0.0-0.8); Eosinophils % 1.9 %; Hematocrit 28.7 % (37.0-47.0); Hemoglobin 8.9 g/dL (11.5-15.3); Lymphocytes # 1.4 10^3/uL (0.8-4.8); Mean Corpuscular Hemoglobin 28.3 pg (28.0-34.0); Mean Corpuscular Volume 91.4 fL (81-99); Mean Platelet Volume 10.9 fL (7.4-10.4); Monocytes # 0.7 10^3/uL (0.2-0.9); Monocytes % 9.8 %; Neutrophils # 4.4 10^3/uL (1.8-7.7); Neutrophils % 65.1 %; Nucleated Red Blood Cells % 0 %; Platelet Count 342 10^3/cmm (130-400); Red Blood Count 3.14 10^6/uL (4.1-5.3); Red Cell Distribution Width 18.1 % (12.1-15.1); White Blood Count 6.7 10^3/uL (4.0-10.0)
[2019-12-14 21:55] LABS: Troponin(5th) Baseline 33 ng/mL (0-10)
[2019-12-14 22:03] LABS: Alanine Aminotransferase 22 U/L (0-33); Alkaline Phosphatase 109 IU/L (35-105); Anion Gap 11.8 (5-19); Aspartate Amino Transferase 29 U/L (0-32); Blood Urea Nitrogen 11 mg/dL (8-23); Calcium 8.2 mg/dL (8.5-10.5); Carbon Dioxide 29 mmol/L (22-29); Chloride 103 mmol/L (98-107); Globulin 4.4 g/dL (1.3-4.6); Glucose 143 mg/dL (74-106); Lipase 26 U/L (13-60); Magnesium 1.2 mg/dL (1.7-2.3); NT Pro B Type Natriuretic Pept 5774 pg/mL (0-450); Potassium 3.8 mmol/L (3.5-5.1); Sodium 140 mmol/L (136-145); Total Bilirubin 0.2 mg/dL (0.15-1.2); Total Protein 6.4 g/dL (6.6-8.7)
--- NOTE | 2019-12-14 22:05 | PC.NURSE ---
patient states once she was put on oxygen she felt okay again
[2019-12-14 22:08] VITALS: BP 150/75; PULSE 91; RESP 16; O2SAT 96
--- NOTE | 2019-12-14 23:23 | ECG_ITS ---
Measurements Intervals [place] Rate: 80 P: 60 MO: 203 QRS: 15 QRSD: 132 T: -36 QT: 439 QTc: 508 SINUS RHYTHM POSSIBLE LEFT ATRIAL ENLARGEMENT [-0.1mV P WAVE IN V1/V2] RIGHT BUNDLE BRANCH BLOCK [120+ ms QRS DURATION, UPRIGHT V1, 40+ ms S IN I/aVL/V4/V5/V6] Compared to ECG 11/25/2019 21:42:20 Sinus tachycardia no longer present First degree AV block no longer present T-wave abnormality no longer present Possible ischemia no longer present Electronically Signed On 12-15-2019 15:57:22 BIN PILER by Osmany Charles M.D. [id number]
[2019-12-14 23:51] LABS: Troponin 5 2HR 44.47 ng/mL (0-10)
--- NOTE | 2019-12-14 23:56 | P.HP_ITS ---
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 She presented today with chief complaint of chest tightness. Patient is stating that after dinner she was trying to relax in her bed when she started feeling shortness of breath at rest she felt chest heaviness, she describes as someone sitting on her chest and not letting her bleed. It lasted until EMS arrived and gave her 4 doses of aspirin, blood pressure was stable, heart rate was stable, her symptoms did not recur in ER. She is stating that she had similar episode when she had a mini heart attack in the past. She describing that this chest heaviness was radiating towards left side of her neck. She did not experience any nausea, vomiting, fever, chills, dysuria recent diarrhea or constipation. Abdominal drains are not draining any purulent material. She has not spiked any fever. She has not noticed any palpitations. She has noticed that her feet are more swollen and she is not able to walk independently she is using wheelchair. She denies any history of CABG, coronary disease, stroke, diabetes. Diagnostics in ER showed congestive heart failure with high BNP, ER physician ordered d-dimer with CTA EKG showing chronic right bundle branch block with first-degree blockage, sinus rhythm without any ischemic changes I have reviewed her records from [facility] echo was done on 11/30/2019 which showed EF 55 to 60%, no aortic valve stenosis, trivial aortic valve regurgitation, mitral valve annular calcification trace mitral valve regurgitation both leaflets of mitral valve appeared thickened and calcified and transesophageal echo was recommended. Chest x-ray showed atelectasis in left lower lung CT abdomen showed anasarca, evolving abscesses, pleural effusion, air collection in better, Review of Systems Const: Reports: change in weight, fatigue and malaise; Denies: fever, chills or body aches Eyes: Denies: change in vision ENMT: Denies: throat pain Card: Reports: chest pain, edema and swelling of feet/ankles; Denies: irregular heart rhythm Resp: Reports: shortness of breath; Denies: productive cough, non-productive cough or wheezing GI: Denies: abdominal pain or nausea : Denies: flank pain or difficulty urinating Musc: Denies: neck pain or back pain Skin/Breast: Denies: rash or itching Neuro: Denies: headache or numbness in extremities Psych: Denies: anxiety or depression Endo: Denies: excessive urination Mak/Lymph: Denies: easy bruising All/Imm: Denies: hives Medications/Allergies Home Medications Medication Instructions Recorded Confirmed Last Taken Type PNV cmb#95-ferrous fumarate-FA 1 tab PO DAILY 12/14/19 12/14/19 Unknown History [] acetaminophen 650 mg PO QID PRN 12/14/19 12/14/19 Unknown History aspirin 81 mg PO DAILY 12/14/19 12/14/19 Unknown History ceftriaxone 1 g IV Q24H 12/14/19 12/14/19 Unknown History latanoprost 1 drp OPHTHALMIC (EYE) DAILY 12/14/19 12/14/19 Unknown History lovastatin 20 mg PO DAILY 12/14/19 12/14/19 Unknown History metronidazole 500 mg PO Q8H 12/14/19 12/14/19 Unknown History phenyleph-min oil-petrolatum 1 ea FL PRN PRN 12/14/19 12/14/19 Unknown History [Preparation H] potassium chloride 20 meq PO BID 12/14/19 12/14/19 Unknown History Allergies Allergy/AdvReac Type Severity Reaction Status Date / Time Penicillins Allergy Unknown Verified 11/26/19 00:01 PFSH Acute PFSH: Statuses (acute, chronic, etc) shown below reflect problem list status as previously entered and may not be historically accurate Medical History (Updated 12/15/19 @ 01:09 by Anabela Merchant MD) Abnormal findings on diagnostic imaging of heart and coronary circulation (Acute) Abscess of liver (Acute) Aneurysm of iliac artery (Acute) Bacteremia (Acute) Chronic obstructive pulmonary disease, unspecified (Acute) Dyslipidemia (Acute) Glaucoma (Acute) Hypoglycemia, unspecified (Acute) Hypokalemia (Acute) Internal hemorrhoids (Acute) Leukemoid reaction (Acute) Liver abscess (Acute) Nonspecific elevation of levels of transaminase and lactic acid dehydrogenase [l dh] (Acute) Osteoporosis (Acute) Ovarian cancer (Acute) Pulmonary fibrosis, unspecified (Acute) Streptococcal infection, unspecified site (Acute) Syncope (Acute) Surgical History (Updated 12/14/19 @ 23:58 by Anabela Merchant MD) H/O hysterectomy with oophorectomy (Acute) H/O removal of cyst (Acute) Hx of cholecystectomy (Acute) Family History (Updated 12/14/19 @ 23:59 by Anabela Merchant MD) Father CAD (coronary artery disease) Social History (Updated 12/14/19 @ 23:58 by Anabela Merchant MD) Smoking and tobacco status: current every day smoker Alcohol intake: never Substance/Drug Use: never Housing: Retirement Vitals/I&O/Wt Last Vital Signs Temp 97.8 F 12/14/19 21:34 Pulse 91 12/14/19 22:08 Resp 16 12/14/19 22:08 BP 150/75 12/14/19 22:08 Pulse Ox 96 12/14/19 22:08 Weight last 48 hrs Weight 61.235 kg Physical Exam Narrative: EXAM NARRATIVE: Very pleasant elderly female lying comfortably in her bed She is lying supine without any orthopnea or PND She is saturating well on room air S1, S2, no JVD, bilateral extremity 1+ pitting edema, ankle edema Abdomen soft nontender nondistended, 2 abdominal drains present without any output Lower extremity edema noted No active signs of ischemia granular ulcer of lower extremities Appropriate mood and affect Bilateral breath sounds without any adventitious sounds Data : 12/14/19 21:35 12/14/19 21:35 A&P Assessment and plan (1) Chest pain: Status: Acute Qualifiers: Chest pain type: unspecified Qualified Code(s): R07.9 - Chest pain, unspecified Code(s): R07.9 - Chest pain, unspecified (2) Heart failure with preserved ejection fraction: Status: Acute Code(s): I50.30 - Unspecified diastolic (congestive) heart failure (3) Liver abscess: Status: Acute Code(s): K75.0 - Abscess of liver Additional A&P Information Unstable angina Pressure like chest discomfort, substernal, relieved with aspirin, associated with shortness of breath No previous history of [place], coronary disease Heart score of 5, delta troponin greater than 10, currently asymptomatic, EKG did not show any signs of ischemia Lexiscan stress test in the morning, n.p.o. after midnight, ER physician has ordered CTA chest Her TSH level was slightly high I will check her to free T4 level Preserved ejection fraction heart failure active exacerbation High BNP with clinical signs of fluid overload Recent echo showed preserved ejection fraction It also showed thickened mitral valve and there was concern for endocarditis, will repeat echo to see if there are changes in any valvular anatomy Currently she is afebrile, no leukocytosis, no signs of emboli or splinter hemorrhage Her symptoms could be secondary to CHF exacerbation Recent drainage of liver abscess by interventional radiology at [facility] Last day of Flagyl , last day of ceftriaxone December 24 Currently she is not in any sepsis, no leukocytosis or fever DVT prophylaxis: Lovenox Full code Attestations Medical Necessity Statement*: Anticipating her discharge less than 48 hours for work-up of unstable angina with echo and stress test Time Spent in Patient Care: 50 Coding Level of Care Code Acute Clinical Associate for Shastag Kendal Diagnoses Chest pain R07.9 Chest pain type: unspecified Heart failure with preserved ejection fraction I50.30 Liver abscess K75.0
[2019-12-15] VITALS (18 sets, daily range): BP systolic 133–174; BP diastolic 66–89; PULSE 53–84; RESP 16–19; TEMP 17.2–36.9; O2SAT 93–98
--- NOTE | 2019-12-15 00:05 | CTR_ITS ---
PROCEDURE INFORMATION: Exam: CT Angiography Chest With Contrast Exam date and time: 12/15/2019 1:05 AM Age: 79 years old Clinical indication: Chest pain; Type not specified; Prior surgery; Surgery date: <1 month; Surgery type: Liver; Patient HX: Elevated d-dimer; Additional info: Chest pain/recent surgery/leg pain TECHNIQUE: Imaging protocol: Computed tomographic angiography of the chest with intravenous contrast. 3D rendering: MIP and/or 3D reconstructed images were created by the technologist. Total DLP: 579.55 mGy-cm Radiation optimization: All CT scans at this facility use at least one of these dose optimization techniques: automated exposure control; mA and/or kV adjustment per patient size (includes targeted exams where dose is matched to clinical indication); or iterative reconstruction. Contrast material: OMNI 350; Contrast volume: 77.8 ml; Contrast route: 20G; COMPARISON: CR XR chest 1V portable [id number] 12/14/2019 9:40 PM FINDINGS: Heart size within normal limits. Enlarged right hilar lymph node measuring 1.3 cm short axis. No pulmonary emboli identified. Extensive atherosclerotic calcification of the thoracic aorta. No thoracic aortic aneurysm or dissection identified. 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 Moderate area of airspace opacity (atelectasis and/or consolidation) in the right lower lobe posteriorly. Large area of airspace opacity (atelectasis and/or consolidation) in the left lower lobe basilarly. No pneumothorax. Small bilateral pleural effusions. Images of the upper abdomen were reviewed. Two percutaneous drains noted in the liver. There is a large ill-defined hypodense mass in the left hepatic lobe. This measures roughly 9 cm x 5.4 cm on series 2, image 182. This finding is much smaller than prior study (prior study occurred before drains were placed). Detailed history not available, but this may represent an abscess that has dramatically decreased in size (although still large). Mild degenerative changes of the thoracic spine. Thrombus is noted in the visualized abdominal aorta, maximum stenosis approximately 40% (not hemodynamically significant). Marked subcutaneous edema of the flanks bilaterally, new. CT/CT angio chest PE protcl [id number] IMPRESSION: 1. No pulmonary emboli identified. 2. Moderate area of airspace opacity (atelectasis and/or consolidation) in the right lower lobe posteriorly. 3. Large area of airspace opacity (atelectasis and/or consolidation) in the left lower lobe basilarly. 4. Small bilateral pleural effusions. 5. There is a large ill-defined hypodense mass in the left hepatic lobe. Detailed history not available, but this may represent an abscess that has dramatically decreased in size after drain placement (although still large). Radiation Dose CTDIVOL = (mGy): DLP = 579.55 (mGy-cm)
[2019-12-15 00:08] LABS: Troponin 5 2HR Delta 11.47 ABS# (0-10)
[2019-12-15] MEDS: magnesium sulfate premix 2 GM/50 ML PIGGYBACK IV (00:11)
--- NOTE | 2019-12-15 01:40 | NMCV_ITS ---
NM karol perf SPECT r/s* [id number] Chelsey Funes Age: 79 Gender: F : 1940 Exam Date: 12/15/2019 01:40 Ordering Phys: Anabela Merchant MD Technologist: LETTY Alejo Exam Location: [facility] Indications: Chest pain STRESS TEST [facility] IMAGE PROTOCOL Rest/Stress 1 Lexiscan Day Radiopharmaceutical Dose (mCi) Administration Site Administered by Rest: Tc-99m 10.8 IV LETTY Alejo Sestamibi Stress:Tc-99m 32.1 IV LETTY Alejo Sestamibi Rest: 15-Dec-2019 60 Discovery 630 Stress: 15-Dec-2019 45 Discovery 630 0.4mg Lexiscan. Supine position only as patient was unable to lay prone. SPECT RESULTS Technical Quality: Good Raw Data Analysis: Normal Image Corrections: No attenuation or motion correction applied Summed Stress Score: 8 Summed Rest Score: 8 Summed Difference Score: 0 PERFUSION FINDINGS Moderately decreased tracer uptake in the apical segments with some subtle areas of reversibility FUNCTIONAL RESULTS (calculated via Gated SPECT) Stress Image LV EF (%): 49 Stress EDV (mL):91 TID: 0.97 Stress ESV (mL):46 FUNCTIONAL FINDINGS: Segmental wall motion analysis revealing no gross wall motion normalities IMPRESSIONS 1. Myocardial perfusion imaging revealing moderately decreased persistent tracer uptake in the apical segments with some small areas of reversibility, suggestive of myocardial scarring in the distributor of all the 3 coronary arteries with very small areas of khang-infarction ischemia 2. Segmental wall motion analysis revealing mild diffuse hypokinesia of the LV apex. 3. Slightly diminished elevation fraction of 49%. 4. LV volume, slightly elevated. No similar previous studies available for comparison Dr Dori Gomez MD [facility] (Electronically Signed) Final Date: 15 December 2019 09:59 S
--- NOTE | 2019-12-15 01:40 | USCV_ITS ---
Chelsey Funes Age: 79 Gender: F : 1940 Exam Date: 12/15/2019 06:32 Ordering Phys: Anabela Merchant MD Technologist: Marvin Chiang [place] [facility] [place]: CHF BP: 123 / 72 HR: 65 Rhythm: Sinus Technical Quality: Good MEASUREMENTS (Male / Female) Normal Values 2D ECHO LV Diastolic Diameter PLAX 4.4 cm 4.2 - 5.9 / 3.9 - 5.3 cm LV Systolic Diameter PLAX 3.8 cm IVS Diastolic Thickness 0.9 cm 0.6 - 1.0 / 0.6 - 0.9 cm IVS Systolic Thickness 1.4 cm LVPW Diastolic Thickness 0.9 cm 0.6 - 1.0 / 0.6 - 0.9 cm LVPW Systolic Thickness 1.5 cm LVOT Diameter 2.0 cm LV Ejection Fraction 2D Teich 31.4 % LV Ejection Fraction MOD 2C 50.0 % LV Ejection Fraction 2C AL 49.5 % LA Diameter 4.7 cm LA Width 4.1 cm LA Height 5.0 cm RA Width 3.7 cm RA Height 4.3 cm Aorta at Sinotubular Diameter 2.0 cm M-MODE LV Diastolic Diameter MM 6.0 cm 4.2 - 5.9 / 3.9 - 5.3 cm LV Systolic Diameter MM 4.3 cm LV Ejection Fraction MM Teich 53.5 % IVS Diastolic Thickness MM 0.7 cm 0.6 - 1.0 / 0.6 - 0.9 cm IVS Systolic Thickness MM 1.2 cm LVPW Diastolic Thickness MM 1.3 cm 0.6 - 1.0 / 0.6 - 0.9 cm LVPW Systolic Thickness MM 1.6 cm RV Diastolic Diameter MM 1.0 cm Aortic Annulus Diameter 3.2 cm LA Ao Ratio MM 1.5 MV E Point Septal Separation 0.8 cm DOPPLER AV Peak Velocity 158.0 cm/s LVOT Peak Velocity 106.0 cm/s AV Area Cont Eq vti 2.6 cm squared AV Area Cont Eq pk 2.1 cm squared MV Area PHT 5.0 cm squared Mitral E to A Ratio 0.8 MV E' Velocity 8.0 cm/s Mitral E to MV E' Ratio 10.9 Mitral E to LV E' Lateral Ratio 10.9 Mitral E to LV E' Septal Ratio 11.0 TR Peak Velocity 197.0 cm/s TR Peak Gradient 15.5 mmHg TV Peak E Velocity 97.0 cm/s Right Atrial Pressure 3.0 mmHg Pulmonary Artery Systolic Pressu 18.5 mmHg FINDINGS Left Ventricle Normal left ventricular size and systolic function, EF 56 %. Mild left ventricular hypertrophy. No regional wall motion abnormalities. Grade I/IV diastolic dysfunction (abnormal relaxation filling pattern), normal to mildly elevated filling pressures. Right Ventricle Normal right ventricular size and systolic function. Right Atrium Normal right atrial size. Left Atrium Mildly increased left atrial size. Mitral Valve Thickened mitral valve. Aortic Valve Thickened aortic valve. Trace aortic valve regurgitation. Tricuspid Valve Trace tricuspid valve regurgitation. Pulmonic Valve Mild to moderate pulmonary valve regurgitation. Pericardium No pericardial effusion. Aorta Plaque seen in the ascending aorta. CONCLUSIONS Normal left ventricular size and systolic function, EF 56 %. Mild left ventricular hypertrophy. No regional wall motion abnormalities. Grade I/IV diastolic dysfunction (abnormal relaxation filling pattern), normal to mildly elevated filling pressures. Thickened aortic valve. Trace aortic valve regurgitation. Thickened mitral valve. Mildly increased left atrial size. Trace tricuspid valve regurgitation. Mild to moderate pulmonary valve regurgitation. There is no pericardial effusion. There are no intracardiac masses. No previous study is available for comparison. Dr Dori Gomez MD [facility] (Electronically Signed) Final Date: 15 December 2019 09:30 S
[2019-12-15] MEDS: enoxaparin 40 mg/0.4 mL Syringe SUBCUT (02:03)
[2019-12-15 02:26] LABS: D Dimer 3.52 ug/mIFEU (0-0.59)
[2019-12-15] MEDS: iohexol 350 mg/mL 100 mL Btl IV (03:10)
--- NOTE | 2019-12-15 03:23 | ECG_ITS ---
Measurements Intervals Nelson Rate: 66 P: 57 IL: 224 QRS: 28 QRSD: 136 T: -25 QT: 455 QTc: 479 SINUS RHYTHM WITH FIRST DEGREE AV BLOCK POSSIBLE LEFT ATRIAL ENLARGEMENT [-0.1mV P WAVE IN V1/V2] RIGHT BUNDLE BRANCH BLOCK [120+ ms QRS DURATION, UPRIGHT V1, 40+ ms S IN I/aVL/V4/V5/V6] Diffuse ST and T wave changes Compared to ECG 11/25/2019 21:42:20 Sinus tachycardia no longer present Electronically Signed On 12-15-2019 15:58:22 PRODUCT SAF[employer]Y ADMINISTRATOR by Osmany Charles M.D. [email or web address]
[2019-12-15] MEDS: cefTRIAXone 1,000 MG in sodium chloride 0.9% (plus) 50 ML 100 MG IV (03:30)
[2019-12-15 04:13] LABS: Basophils # 0.1 10^3/uL (0.0-0.1); Basophils % 1.8 %; Eosinophils # 0.2 10^3/uL (0.0-0.8); Eosinophils % 2.9 %; Hematocrit 25.4 % (37.0-47.0); Hemoglobin 7.7 g/dL (11.5-15.3); Lymphocytes # 1.9 10^3/uL (0.8-4.8); Lymphocytes % 30.6 %; Mean Corpuscular HGB Conc 30.3 g/dL (30.0-36.0); Mean Corpuscular Hemoglobin 27.7 pg (28.0-34.0); Mean Corpuscular Volume 91.4 fL (81-99); Mean Platelet Volume 11.6 fL (7.4-10.4); Monocytes # 0.6 10^3/uL (0.2-0.9); Monocytes % 9.4 %; Neutrophils # 3.4 10^3/uL (1.8-7.7); Neutrophils % 54.8 %; Nucleated Red Blood Cells % 0 %; Platelet Count 343 10^3/cmm (130-400); Red Blood Count 2.78 10^6/uL (4.1-5.3); Red Cell Distribution Width 18.3 % (12.1-15.1); White Blood Count 6.2 10^3/uL (4.0-10.0)
[2019-12-15 04:33] LABS: Anion Gap 10.6 (5-19); Blood Urea Nitrogen 10 mg/dL (8-23); Calcium 7.8 mg/dL (8.5-10.5); Carbon Dioxide 28 mmol/L (22-29); Chloride 103 mmol/L (98-107); Glucose 106 mg/dL (74-106); Osmolality Calculated 282 mOsm/kg (285-295); Potassium 3.6 mmol/L (3.5-5.1); Sodium 138 mmol/L (136-145)
[2019-12-15 04:37] LABS: Troponin 5 6HR 50.72 ng/L (0-10)
[2019-12-15 04:46] LABS: Chol HDL Ratio 3.93 mg/dL (0.0-4.40); Cholesterol 114 mg/dL (0-200); Free T4 Free Thyroxine 1.15 ng/dL (0.82-1.77); HDL Cholesterol 29 mg/dL (60-100); LDL Cholesterol Calculated 66 mg/dL (50-129); LDL HDL Ratio 2.28 RATIO (0.00-3.22); Triglycerides 95 mg/dL (0-150)
[2019-12-15 04:52] LABS: Troponin 5 6HR Delta 17.72 ng/L (0-12)
[2019-12-15 04:53] LABS: Estmated Average Glucose 103; Hemoglobin A1C 5.2 % (4.0-6.0)
[2019-12-15] MEDS: regadenoson 0.4 Mg/5 ml Syringe IVP (08:28)
--- NOTE | 2019-12-15 08:31 | SUR.PREOP ---
Patient reports no pain or discomfort prior to the start of the procedure.
[2019-12-15] MEDS: FUROsemide 20 mg Tablet PO (10:40)
[2019-12-15] MEDS: aspirin 81 mg Chew Tablet PO (10:41)
--- NOTE | 2019-12-15 12:07 | P.CONIM_ITS ---
Providers/Reason For Consult Consulting Physican/Specialty*: Tang Gomez MD/cardiology Reason for Consult*: Patient with chest pain, elevated troponin I and abnormal myocardial perfusion imaging Attending Physician: Uche Guaman MD Primary Care Provider: Amado Larry History of Present Illness History of Present Illness Chelsey Funes is a 79 year old female who is admitted to hospital with complaints of sudden onset of chest tightness and shortness of breath. She had elevated troponin T and BNP. She had a myocardial perfusion imaging today which revealed moderate area of decreased tracer uptake in the apical segments with some reversibility, suggestive of myocardial scarring in the distribution of all the 3 coronary arteries with small areas of khang-infarction ischemia. Cardiology consult is requested for further cardiac evaluation recommendations. Patient has a history of hypertension and dyslipidemia. According to her, she had 2 heart attacks in the past. The first heart attack was in February 2000 and at that time, she was admitted to the [facility]. She had some work-up but according to her, never had a cardiac cauterization or PCI. The second episode of heart attack was in March 2017. At that time, she was admitted to the [facility] in [facility]. She stayed in the hospital for 3 to 4 days. She had some work-up . However she never had any coronary angiogram or coronary interventions as she can recall. 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 She recently presented to this hospital with a more or less similar symptoms and was subsequently transferred to [facility] in [place]. She was found found to have liver abscess and features of septic shock. She was treated with IV antibiotics and abscess drainage. She continues to have the abscess drainage. She was discharged to a snf for recuperation. There was a questionable endocarditis but never been documented. Apparently been recuperating in the snf. On the day of admission, she had a rather sudden onset of chest tightness associated shortness of breath. She felt as if somebody sitting on the chest. She did not have any pain as such. No fever, chills or cough. No other associated symptoms or radiation of pain. In the ambulance, she was given oxygen and aspirin by mouth. Her symptoms gradually subsided. According the patient, her symptoms were almost gone by the time she reached the emergency room. The whole episode middle lasted for an hour or so. At the time of my examination, patient is pain-free with no specific cardiac symptoms. She had a most recent echocardiogram [facility] which revealed normal LV ejection fraction with no significant wall motion normalities. She had a limited 2D echocardiogram here in this hospital which also did not reveal any significant wall motion normalities. It was a technically somewhat compromised study. Patient has a history of stage IV ovarian cancer, diagnosed 15 years ago at the [facility]. She was on some research medication. After 3 or 4 years of treatment, she was told to be cancer free. But she kept on having the follow-up evaluation as per protocol. Review of Systems Narrative: CONSTITUTIONAL: No fever or chills. Been having some amount of fatigue EYES: Patient is wearing sunglasses because of the glaucoma and has some difficulty in looking at the light. ENT: No hoarseness of voice, auditory disturbances or sore throat. CARDIOVASCULAR: As mentioned above. History of heart attack x2 in the past as mentioned above. RESPIRATORY: No significant cough. GASTROINTESTINAL: No hematemesis or melena. Has a history of cholecystectomy and surgery for ovarian cancer GENITOURINARY: No dysuria or hematuria. INTEGUMENTARY: No skin rashes or history of skin cancer. NEURO: No transient ischemic attacks or amaurosis. PSYCHIATRIC: No history of psychosis or major depression. HEMATOLOGIC: No bleeding disorders or significant anemia. ENDOCRINE: No history of polyuria or polydipsia. MUSCULOSKELETAL: No recent joint pain or swelling. Patient has moderate edema of the both lower extremities. No cyanosis. ALLERGY/IMMUNOLOGY: As mentioned above. Meds/Allergies Home Medications and Allergies Home Medications Medication Instructions Recorded Confirmed Type PNV cmb#95-ferrous fumarate-FA 1 tab PO DAILY 12/14/19 12/14/19 History [] acetaminophen 650 mg PO QID PRN 12/14/19 12/14/19 History aspirin 81 mg PO DAILY 12/14/19 12/14/19 History ceftriaxone 1 g IV Q24H 12/14/19 12/14/19 History latanoprost 1 drp OPHTHALMIC (EYE) DAILY 12/14/19 12/14/19 History lovastatin 20 mg PO DAILY 12/14/19 12/14/19 History metronidazole 500 mg PO Q8H 12/14/19 12/14/19 History phenyleph-min oil-petrolatum 1 ea [place] PRN PRN 12/14/19 12/14/19 History [Preparation H] potassium chloride 20 meq PO BID 12/14/19 12/14/19 History Allergies Allergy/AdvReac Type Severity Reaction Status Date / Time Penicillins Allergy Unknown Verified 11/26/19 00:01 Current Medications Current Medications Current Medications Acetaminophen (Tylenol) 650 mg PO QID PRN PRN Reason: Fever Or Pain Albuterol/Ipratropium (Duoneb) 3 ml INHALATION Q4H PRN PRN Reason: SHORTNESS OF BREATH Aminophylline (Aminophylline) 25 mg IVP Q2M PRN PRN Reason: see dose instructions Stop: 12/16/19 07:52 Aspirin (Aspirin Chewable) 81 mg PO DAILY [facility] Last Admin: 12/15/19 10:41 Dose: 81 mg Documented by: Atorvastatin Calcium (Lipitor) 20 mg PO BEDTIME JUAN C Furosemide (Lasix) 20 mg PO DAILY@0800 [facility] Last Admin: 12/15/19 10:40 Dose: 20 mg Documented by: Ceftriaxone Sodium 2,000 mg/ (Sodium Chloride) 50 mls @ 100 mls/hr IV Q24H JUAN C Metronidazole (Flagyl Tab) 500 mg PO TID JUAN C Morphine Sulfate (Morphine) 4 mg IVP Q4H PRN PRN Reason: SEVERE PAIN Nitroglycerin (Nitrostat) 0.4 mg SUBLINGUAL Q5M PRN PRN Reason: CHEST PAIN Stop: 12/16/19 07:52 Ondansetron HCl (Zofran) 4 mg IVP Q6H PRN PRN Reason: NAUSEA AND VOMITING Ondansetron HCl (Zofran) 4 mg IVP Q2M PRN PRN Reason: NAUSEA Pantoprazole Sodium (Protonix) 40 mg PO BID JUAN C PFSH Acute PFSH: Statuses (acute, chronic, etc) shown below reflect problem list status as previously entered and may not be historically accurate Medical History Abnormal findings on diagnostic imaging of heart and coronary circulation (Acute) Abscess of liver (Acute) Aneurysm of iliac artery (Acute) Bacteremia (Acute) Chronic obstructive pulmonary disease, unspecified (Acute) Dyslipidemia (Acute) Glaucoma (Acute) Hypoglycemia, unspecified (Acute) Hypokalemia (Acute) Internal hemorrhoids (Acute) Leukemoid reaction (Acute) Liver abscess (Acute) Nonspecific elevation of levels of transaminase and lactic acid dehydrogenase [ldh] (Acute) Osteoporosis (Acute) Ovarian cancer (Acute) Pulmonary fibrosis, unspecified (Acute) Streptococcal infection, unspecified site (Acute) Syncope (Acute) Surgical History H/O hysterectomy with oophorectomy (Acute) H/O removal of cyst (Acute) Hx of cholecystectomy (Acute) Family History (Updated 12/15/19 @ 13:24 by Dori Gomez MD) Father CAD (coronary artery disease) Father CAD (coronary artery disease), Onset Age: 70 of myocardial infarction while working on his truck Brother Valvular heart disease, Onset Age: 60 Had open heart surgery in his 60s and had a valve replacement Social History Smoking and tobacco status: current every day smoker Alcohol intake: never Substance/Drug Use: never Housing: [facility] Vitals/I&O/Wt Last Vital Signs Temp 97.8 F 12/15/19 11:51 Pulse 61 12/15/19 11:51 Resp 18 12/15/19 11:51 BP 151/79 12/15/19 11:51 Pulse Ox 93 12/15/19 11:51 12/14/19 12/15/19 12/15/19 22:59 06:59 14:59 Intake Total 540 / 540 Output Total 400 / 400 Balance -400 / -400 540 / 540 Weight last 48 hrs Weight 168 lb 11.2 oz Weight 135 lb Physical Exam Narrative: EXAM NARRATIVE: GENERAL: The patient is alert and oriented times three. Not in any acute distress. HEENT: Moderate pallor,no icterus or lymphadenopathy. Oral cavity: There are no mucous membrane lesions. Funduscopic examination: Fundus is not visualized NECK: Trachea appears to be central. No masses noted. No JVD or thyromegaly appreciated. No carotid bruit. RESPIRATORY: Chest is symmetrical. No intercostals muscle retraction or any accessory muscle activation. There is no chest wall tenderness. Breath sounds are heard bilaterally. Few crackles in the left base. No evidence of any consolidation. Breath sounds are slightly diminished in the bases bilaterally BREASTS: Deferred. HEART: The PMI is in the 5th left intercostals space just inthe midclavicular line. No palpable precordial events. S1 and S2 are normal. No S3 or S4 heard. No pericardial rub or any click heard. Short systolic murmur in the left sternal border. ABDOMEN: Abdomen slightly distended. Free fluid present. Drainage catheter seems to be draining some pus. Bowel sounds are normally heard. : Deferred. RECTAL: Deferred. LYMPHATIC: No lymphadenopathy noted in the neck or groin. EXTREMITIES: 3+ pitting edema both lower extremities. No cyanosis. MUSCULOSKELETAL: No acute joint deformities or swelling. SKIN: There are no significant scars or skin rash noted. NEUROPSYCHIATRIC: The patient is alert and oriented x3. Appears to be in a good mood. The higher functions are grossly within normal limits. No tremors or rigidity noted. Data Labs: Other Labs: Abnormal lab results 12/14/19 12/14/19 12/14/19 Range/Units 21:35 21:35 21:35 RBC 3.14 L (4.1-5.3) 10^6/u L Hgb 8.9 L (11.5-15.3) g/dL Hct 28.7 L (37.0-47.0) % MCH (28.0-34.0) pg RDW 18.1 H (12.1-15.1) % MPV 10.9 H (7.4-10.4) fL D-Dimer (0-0.59) ug/mIFE U Glucose 143 H (74-106) mg/dL Calculated Osmolal ity (285-295) mOsm/k g Calcium 8.2 L (8.5-10.5) mg/dL Magnesium 1.2 L (1.7-2.3) mg/dL Alkaline Phosphata se 109 H (35-105) IU/L Troponin I 6 Hour (0-10) ng/L Troponin I Hi Sens Del (0-12) ng/L Troponin T Baselin e 33 H (0-10) ng/mL Troponin T 120 Min [place] (0-10) ng/mL Delta Troponin T (0-10) ABS# NT-Pro-B Natriuret Pep 5774 H (0-450) pg/mL Total Protein 6.4 L (6.6-8.7) g/dL Albumin 2.0 L (3.5-5.2) g/dL HDL Cholesterol (60-100) mg/dL 12/14/19 12/14/19 12/15/19 Range/Units 21:35 23:27 03:25 RBC (4.1-5.3) 10^6/u L Hgb (11.5-15.3) g/dL Hct (37.0-47.0) % MCH (28.0-34.0) pg RDW (12.1-15.1) % MPV (7.4-10.4) fL D-Dimer 3.52 H (0-0.59) ug/mIFE U Glucose (74-106) mg/dL Calculated Osmolal ity (285-295) mOsm/k g Calcium (8.5-10.5) mg/dL Magnesium (1.7-2.3) mg/dL Alkaline Phosphata se (35-105) IU/L Troponin I 6 Hour 50.72 H (0-10) ng/L Troponin I Hi Sens Del 17.72 H* (0-12) ng/L Troponin T Baselin e (0-10) ng/mL Troponin T 120 Min [place] 44.47 H (0-10) ng/mL Delta Troponin T 11.47 H* (0-10) ABS# NT-Pro-B Natriuret Pep (0-450) pg/mL Total Protein (6.6-8.7) g/dL Albumin (3.5-5.2) g/dL HDL Cholesterol (60-100) mg/dL 12/15/19 12/15/19 12/15/19 Range/Units 03:25 03:25 03:25 RBC 2.78 L (4.1-5.3) 10^6/u L Hgb 7.7 L (11.5-15.3) g/dL Hct 25.4 L (37.0-47.0) % MCH 27.7 L (28.0-34.0) pg RDW 18.3 H (12.1-15.1) % MPV 11.6 H (7.4-10.4) fL D-Dimer (0-0.59) ug/mIFE U Glucose (74-106) mg/dL Calculated Osmolal ity 282 L (285-295) mOsm/k g Calcium 7.8 L (8.5-10.5) mg/dL Magnesium (1.7-2.3) mg/dL Alkaline Phosphata se (35-105) IU/L Troponin I 6 Hour (0-10) ng/L Troponin I Hi Sens Del (0-12) ng/L Troponin T Baselin e (0-10) ng/mL Troponin T 120 Min [place] (0-10) ng/mL Delta Troponin T (0-10) ABS# NT-Pro-B Natriuret Pep (0-450) pg/mL Total Protein (6.6-8.7) g/dL Albumin (3.5-5.2) g/dL HDL Cholesterol 29 L (60-100) mg/dL Imaging^: Echo: My impression: Normal left ventricular size and systolic function, EF 56 %. Mild left ventricular hypertrophy. No regional wall motion abnormalities. Grade I/IV diastolic dysfunction (abnormal relaxation filling pattern), normal to mildly elevated filling pressures. Thickened aortic valve. Trace aortic valve regurgitation. Thickened mitral valve. Mildly increased left atrial size. Trace tricuspid valve regurgitation. Mild to moderate pulmonary valve regurgitation. There is no pericardial effusion. There are no intracardiac masses. No previous study is available for comparison. CT Chest: Radiologist's impression: 1. No pulmonary emboli identified. 2. Moderate area of airspace opacity (atelectasis and/or consolidation) in the right lower lobe posteriorly. 3. Large area of airspace opacity (atelectasis and/or consolidation) in the left lower lobe basilarly. 4. Small bilateral pleural effusions. 5. There is a large ill-defined hypodense mass in the left hepatic lobe. Detailed history not available, but this may represent an abscess that has dramatically decreased in size after drain placement (although still large). CT Abd/Pel: Radiologist's impression: 1. Large septated heterogeneous mass in the left lobe of the liver measuring almost 20 cm in length. MRI would be most sensitive to characterize this large mass. 2. Mild wall thickening/colitis versus lack of distension of the descending and sigmoid colon is noted. No ileus or obstruction. No fluid collection or abscess. 3. 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 CXR: Radiologist's impression: 1. Myocardial perfusion imaging revealing moderately decreased persistent tracer uptake in the apical segments with some small areas of reversibility, suggestive of myocardial scarring in the distributor of all the 3 coronary arteries with very small areas of khang-infarction ischemia 2. Segmental wall motion analysis revealing mild diffuse hypokinesia of the LV apex. 3. Slightly diminished elevation fraction of 49%. 4. LV volume, slightly elevated. EKG^: EKG 1: My Interpretation: Normal sinus rhythm with a first-degree AV block. Right bundle branch block. Diffuse nonspecific T wave changes. Possible left atrial enlargement. A&P Assessment and plan (1) Abnormal exercise myocardial perfusion study: In view of the presenting symptoms and the abnormal objective findings, in order to further evaluate the coronary status, patient may benefit from a cardiac catheterization. However because of the multiple comorbidities and also since the patient is fairly stable with no specific symptoms of coronary insufficiency at this time, it might be appropriate to hold off on any invasive/interventional procedures at this time. Once her medical condition stabilized, we may consider doing further evaluation. In the meanwhile, it may be appropriate to optimize the medical treatment. Status: Acute Code(s): R94.39 - Abnormal result of other cardiovascular function study (2) Non-ST elevation myocardial infarction (NSTEMI): It would be ideal if she can tolerate the Plavix. But because of the severe anemia, it might be appropriate to hold off on this. Status: Acute Code(s): I21.4 - Non-ST elevation (NSTEMI) myocardial infarction (3) Aneurysm of iliac artery: Patient may require endovascular intervention for the aneurysm, once the medical conditions are properly treated. Till then, we may try to optimize her medical treatment Status: Acute Code(s): I72.3 - Aneurysm of iliac artery (4) Dyslipidemia: Advised to continue on the current medications. Will have a follow-up evaluation as scheduled Status: Acute Code(s): E78.5 - Hyperlipidemia, unspecified (5) Anemia: Patient may benefit from couple of units of blood transfusion to keep the hemoglobin between 9 and 10. Work-up of the anemia as per the primary Status: Acute Qualifiers: Anemia type: unspecified type Qualified Code(s): D64.9 - Anemia, unspecified Code(s): D64.9 - Anemia, unspecified (6) Peripheral edema: This could be multifactorial. The anemia, hypoalbuminemia, ascites, CHF, etc. are contributing factors. May need to have close monitoring of the electrolytes and judicious use of diuretics. I may give IV Lasix and discontinue the p.o. Lasix-Lasix 40 mg IV every 12 hours and potassium 20 mEq p.o. twice daily Status: Acute Code(s): R60.9 - Edema, unspecified Additional A&P Information Patient appears to clinical progress, further recommendations will be made. 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
--- NOTE | 2019-12-15 13:00 | PC.CHAP ---
Pastoral Care Encounter/Spiritual Assessment Type of Contact [] Declined coupler visit [] Patient/Family/Request visit [] Outpatient visit [] Follow-up visit [] Physician referral [] Code/Alert [x] Routine visit [] Staff referral [] Actively dying [] Patient sleeping [] Family support [] [] Out of room [] Palliative care [] [] Receiving care in room [] Pre-surgical visit [] Trauma [] Long length of stay [] ICU visit [] Other: Relational/Emotional Strength [x] Patient feels connected with others/family/visitors/staff [] Distress [] Loneliness/isolation [] Abandonment Spirituality of Patient [] Person of Sera [] Attends Jain of their Sera [] Believes in Prayer [] Reads Bible or Confucianist materials [] There are Spiritual issues to be addressed Landcare Officer Interventions [] Prayer [] Active listening [] Non-anxious presence [] Spiritual/emotional support [] Crisis/trauma care [] Spiritual counseling [] Bereavement support [] Provided bereavement packet [] Provided Bible/devotional materials [] Provided toy/stuffed animal, coloring book to patient or family member [] Provided Communion [] Anointing/[place] [] Salvation [] Completed spiritual assessment [] Other: Impact on Illness or Injury [] Angry [] Fearful [] Anxious [x] Often cries [] Exhaustion [] Unable to work [] Unable to attend yarsani [] Unable to walk/stand [] Unable to read [] Unable to drive [] Unable to eat/drink [] Unable to sleep [] Unable to be with family [] Patient intubated [] Other: Summary patient seems lonely Time spent with patient 15 min
[2019-12-15] MEDS: FUROsemide 10 mg/mL SDV 4mL 40 MG IVP (13:34)
[2019-12-15] MEDS: metoprolol tartrate 25 mg Tablet 12.5 MG PO (13:34)
[2019-12-15] MEDS: cefTRIAXone 2,000 MG in sodium chloride 0.9% (plus) 50 ML 100 MG IV (13:41)
--- NOTE | 2019-12-15 14:38 | PM.PN ---
Subjective Subjective: Interval history: History and physical reviewed. Patient reports significant chest pain, pressure, occurring prior to admission. She reports she has not had any chest discomfort since being admitted. She does feel better currently. She reports prior history of myocardial infarction but denies any knowledge of any stenting, or significant investigation bringing this into question. Medications: Reviewed: Yes Vitals/I&O/Wt Last Vital Signs Temp 97.8 F 12/15/19 11:51 Pulse 61 12/15/19 11:51 Resp 18 12/15/19 11:51 BP 151/79 12/15/19 11:51 Pulse Ox 93 12/15/19 11:51 12/14/19 12/15/19 12/15/19 22:59 06:59 14:59 Intake Total 570 / 570 Output Total 400 / 400 600 / 600 Balance -400 / -400 -30 / -30 Weight last 48 hrs Weight 76.521 kg Weight 61.235 kg Physical Exam Narrative: EXAM NARRATIVE: General exam is no apparent distress Cardiovascular regular rhythm without murmur Lungs clear but with diminished breath sounds at the bases Abdomen is soft with positive bowel sounds Extremities 2+ edema bilaterally Data : 12/15/19 03:25 12/15/19 03:25 A&P Assessment and plan (1) Chest pain: Enzyme elevation consistent with non-ST elevation myocardial infarction Nuclear stress test positive for infarct with khang-infarct ischemia Continue low-dose aspirin, add beta-manolo, continue statin for medical treatment. Initiate cardiology consultation. She will likely be medical treatment only considering her multiple other comorbidities at this time. Status: Acute Qualifiers: Chest pain type: unspecified Qualified Code(s): R07.9 - Chest pain, unspecified Code(s): R07.9 - Chest pain, unspecified (2) Heart failure with preserved ejection fraction: Echocardiogram with EF of 56%, no wall motion abnormalities Lasix IV ordered 40 mg every 12 hours Status: Acute Code(s): I50.30 - Unspecified diastolic (congestive) heart failure (3) Liver abscess: Status: Acute Code(s): K75.0 - Abscess of liver Additional A&P Information Anemia, with hemoglobin less than 8 in this patient with angina and non-ST elevation myocardial infarction. Add Protonix twice daily secondary to concerns this may be related to GI bleeding. She has had a recent colonoscopy which was negative for any pathology. Recent history of liver abscess, question of endocarditis. Old records reviewed. She will continue Rocephin. Flagyl added back in the interim but I do not believe this was intended long-term by her infectious disease specialist Iliac artery aneurysm Hyperlipidemia, currently on statin Discontinue Lovenox for DVT prophylaxis secondary to significant severe anemia and past recent history of heme positive stool. Will continue SCDs. Recheck stool, anemia panel Attestations Medical Necessity Statement*: Needs continued hospital stay for IV diuresis secondary heart failure, and close monitoring following non-ST elevation myocardial infarction Coding Level of Care Code Acute [employer] Paver Operator for Bob Edmonds Diagnoses Chest pain R07.9 Chest pain type: unspecified Heart failure with preserved ejection fraction I50.30 Liver abscess K75.0
[2019-12-15 15:58] LABS: Ferritin 338 ng/mL (15-150); Iron 36 ug/dL (37-145); Percent Saturation 24.4 % (20-50); Total Iron Binding Capacity 147 mcg/dl; Unsaturated Iron Binding 111 ug/dL (112-347)
[2019-12-15 16:08] LABS: Vitamin B12 1032 pg/mL (232-1245)
[2019-12-15] MEDS: metroNIDAZOLE 500 MG Tablet PO ×2 (16:32→21:16)
[2019-12-15] MEDS: pantoprazole DR 40 mg Tablet PO (17:29)
[2019-12-15] MEDS: sodium chloride 0.9% 100 ML (17:30)
[2019-12-15] MEDS: atorvastatin 40 mg Tablet 20 MG PO (21:15)
[2019-12-15] MEDS: latanoprost 0.005% Op Soln 2.5 mL Btl 1 DROP EYE-BOTH (22:24)
[2019-12-16] VITALS: BP 146/72; PULSE 64; RESP 18; TEMP 36.6; O2SAT 94
[2019-12-16] MEDS: FUROsemide 10 mg/mL SDV 4mL 40 MG IVP ×2 (01:40→14:59)
[2019-12-16 04:00] VITALS: BP 146/72; PULSE 64; RESP 18; TEMP 36.6; O2SAT 94
--- NOTE | 2019-12-16 06:00 | ECG_ITS ---
NAME OF STUDY: LEXISCAN SESTAMIBI STRESS TEST INDICATION: Chest Pain RESULTS TO DR BORGES PROCEDURE: At the baseline, the EKG revealed normal sinus rhythm with a right bundle branch block, first-degree AV block. Diffuse nonspecific ST-T changes. The baseline blood pressure was 141/67 mm Hg with a heart rate of 58 beats/min. Lexiscan was infused over a period of 20 seconds. A total of 0.4 milligrams of Lexiscan was infused. The stress phase was continued for a total of 5 minutes. Heart rate at the end of the stress phase was 84 with a blood pressure 133/66. The EKG at the peak infusion revealed no significant changes. Sestamibi was injected 20 seconds after the Lexiscan infusion. Blood pressure at the end of the recovery phase was 139/67 with a heart rate of 84 per minute. CONCLUSION: 1. No significant EKG changes with the LexiScan infusion 2. No LexiScan induced chest pain or cardiac arrhythmia 3. Normal blood pressure and heart rate response 4. Sestamibi/sestamibi perfusion scan pending; see separate report. Electronically Signed On 12-16-2019 16:07:17 CUSTOMS IMPORT SPECIALIST by Dori Gomez M.D. [email or web address]
[2019-12-16 06:32] LABS: Basophils # 0.1 10^3/uL (0.0-0.1); Basophils % 1.8 %; Eosinophils # 0.2 10^3/uL (0.0-0.8); Eosinophils % 2.8 %; Hemoglobin 9.4 g/dL (11.5-15.3); Lymphocytes # 1.4 10^3/uL (0.8-4.8); Lymphocytes % 21.9 %; Mean Corpuscular HGB Conc 31.3 g/dL (30.0-36.0); Mean Corpuscular Volume 89.3 fL (81-99); Mean Platelet Volume 11.5 fL (7.4-10.4); Monocytes # 0.7 10^3/uL (0.2-0.9); Nucleated Red Blood Cells % 0 %; Platelet Count 308 10^3/cmm (130-400); Red Blood Count 3.36 10^6/uL (4.1-5.3); Red Cell Distribution Width 17.9 % (12.1-15.1); White Blood Count 6.5 10^3/uL (4.0-10.0)
[2019-12-16 06:59] LABS: Anion Gap 11.7 (5-19); Blood Urea Nitrogen 10 mg/dL (8-23); Calcium 8.4 mg/dL (8.5-10.5); Carbon Dioxide 30 mmol/L (22-29); Chloride 101 mmol/L (98-107); Glucose 93 mg/dL (74-106); Osmolality Calculated 284 mOsm/kg (285-295); Potassium 3.7 mmol/L (3.5-5.1); Sodium 139 mmol/L (136-145)
[2019-12-16 08:00] VITALS: BP 135/61; PULSE 66; RESP 16; TEMP 35.9; O2SAT 93
[2019-12-16] MEDS: aspirin 81 mg Chew Tablet PO (08:48)
[2019-12-16] MEDS: metroNIDAZOLE 500 MG Tablet PO ×3 (08:48→20:52)
[2019-12-16] MEDS: pantoprazole DR 40 mg Tablet PO ×2 (08:48→17:05)
--- NOTE | 2019-12-16 10:19 | PM.PN ---
Subjective Subjective: Interval history: Chelsey reports she is feeling quite a bit better. She denies any chest discomfort overnight. No shortness of breath. Thinks her legs are less swollen. Medications: Reviewed: Yes Vitals/I&O/Wt Last Vital Signs Temp 96.7 F L 12/16/19 08:00 Pulse 66 12/16/19 08:00 Resp 16 12/16/19 08:00 BP 135/61 12/16/19 08:00 Pulse Ox 93 12/16/19 08:00 12/15/19 12/16/19 12/16/19 22:59 06:59 14:59 Intake Total 410 / 980 240 / 1220 480 / 480 Output Total 1900 / 2500 500 / 3000 Balance -1490 / -1520 -260 / -1780 480 / 480 Weight last 48 hrs Weight 76.521 kg Weight 61.235 kg Physical Exam Narrative: EXAM NARRATIVE: General exam is no apparent distress Cardiovascular regular rhythm without murmur Lungs clear but with diminished breath sounds at the bases Abdomen is soft with positive bowel sounds Extremities 2+ edema bilaterally. Slightly less tight Data : 12/16/19 05:37 12/16/19 05:37 Micro: Microbiology 12/15/19 13:58 Occult Blood (FIT) - Final Stool A&P Assessment and plan (1) Chest pain: Enzyme elevation consistent with non-ST elevation myocardial infarction Nuclear stress test positive for infarct with khang-infarct ischemia Continue low-dose aspirin, add beta-manolo, continue statin for medical treatment. Appreciate cardiology consultation. Will discuss with them overall plan of care for her non-ST elevation myocardial infarction Status: Acute Qualifiers: Chest pain type: unspecified Qualified Code(s): R07.9 - Chest pain, unspecified Code(s): R07.9 - Chest pain, unspecified (2) Heart failure with preserved ejection fraction: Echocardiogram with EF of 56%, no wall motion abnormalities Lasix IV ordered 40 mg every 12 hours. She is diuresing Status: Acute Code(s): I50.30 - Unspecified diastolic (congestive) heart failure (3) Liver abscess: Continue Rocephin. Drain in place from [facility] Status: Acute Code(s): K75.0 - Abscess of liver Additional A&P Information Anemia, with hemoglobin less than 8 in this patient with angina and non-ST elevation myocardial infarction. Now hemoglobin is 9.4 following 1 unit transfusion. Continue Protonix twice daily secondary to concerns this may be related to GI bleeding. Stool was heme-negative this visit, but heme positive on November 25. She has had a recent colonoscopy which was negative for any pathology. She has not had a previous EGD. Recent history of liver abscess, question of endocarditis. Old records reviewed. She will continue Rocephin. Flagyl added back in the interim but I do not believe this was intended long-term by her infectious disease specialist Iliac artery aneurysm Hyperlipidemia, currently on statin Discontinue Lovenox for DVT prophylaxis secondary to significant severe anemia and past recent history of heme positive stool. Will continue SCDs. Attestations Medical Necessity Statement*: Needs continued hospitalization for further investigation of myocardial infarction, further diuresis for heart failure Coding Level of Care Code Acute Cold Meat Chef for [facility] Diagnoses Chest pain R07.9 Chest pain type: unspecified Heart failure with preserved ejection fraction I50.30 Liver abscess K75.0
[2019-12-16 12:00] VITALS: BP 155/54; PULSE 63; RESP 16; TEMP 36.2; O2SAT 93
[2019-12-16] MEDS: cefTRIAXone 2,000 MG in sodium chloride 0.9% (plus) 50 ML 100 MG IV (12:07)
--- NOTE | 2019-12-16 15:22 | PM.PN ---
Subjective Subjective: Interval history: Patient is feeling better today. Her breathing is better. The leg swelling is improving. Denies any chest pain or shortness of breath. No new symptoms. Remains afebrile. Medications: Reviewed: Yes Medication Review Details: Current Medications Acetaminophen (Tylenol) 650 mg PO QID PRN PRN Reason: Fever Or Pain Albuterol/Ipratropium (Duoneb) 3 ml INHALATION Q4H PRN PRN Reason: SHORTNESS OF BREATH Aspirin (Aspirin Chewable) 81 mg PO DAILY [facility] Last Admin: 12/16/19 08:48 Dose: 81 mg Documented by: Atorvastatin Calcium (Lipitor) 20 mg PO BEDTIME [facility] Last Admin: 12/15/19 21:15 Dose: 20 mg Documented by: Clopidogrel Bisulfate (Plavix) 150 mg PO ONCE ONE Stop: 12/16/19 20:52 Furosemide (Lasix) 40 mg IVP Q12H [facility] Last Admin: 12/16/19 14:59 Dose: 40 mg Documented by: Ceftriaxone Sodium 2,000 mg/ (Sodium Chloride) 50 mls @ 100 mls/hr IV Q24H [facility] Last Admin: 12/16/19 12:07 Dose: 100 mls/hr Documented by: Latanoprost (Xalatan) 1 drop EYE-BOTH BEDTIME [facility] Last Admin: 12/15/19 22:24 Dose: 1 drop Documented by: Metronidazole (Flagyl Tab) 500 mg PO TID [facility] Last Admin: 12/16/19 15:22 Dose: 500 mg Documented by: Morphine Sulfate (Morphine) 4 mg IVP Q4H PRN PRN Reason: SEVERE PAIN Ondansetron HCl (Zofran) 4 mg IVP Q6H PRN PRN Reason: NAUSEA AND VOMITING Ondansetron HCl (Zofran) 4 mg IVP Q2M PRN PRN Reason: NAUSEA Pantoprazole Sodium (Protonix) 40 mg PO BID [facility] Last Admin: 12/16/19 08:48 Dose: 40 mg Documented by: Potassium Chloride (Klor-Con 10) 20 meq PO BID [facility] Last Admin: 12/16/19 08:48 Dose: 20 meq Documented by: Vitals/I&O/Wt Last Vital Signs Temp 97.2 F L 12/16/19 12:00 Pulse 63 12/16/19 12:00 Resp 16 12/16/19 12:00 BP 155/54 12/16/19 12:00 Pulse Ox 93 12/16/19 12:00 12/16/19 12/16/19 12/16/19 06:59 14:59 22:59 Intake Total 240 / 1270 720 / 720 Output Total 500 / 3000 300 / 300 Balance -260 / -1730 420 / 420 Weight last 48 hrs Weight 168 lb 11.2 oz Weight 135 lb Physical Exam Narrative: EXAM NARRATIVE: GENERAL: The patient is alert and oriented times three. Not in any acute distress. HEENT: Moderate pallor,no icterus or lymphadenopathy. Oral cavity: There are no mucous membrane lesions. Funduscopic examination: Fundus is not visualized NECK: Trachea appears to be central. No masses noted. No JVD or thyromegaly appreciated. No carotid bruit. RESPIRATORY: Chest is symmetrical. No intercostals muscle retraction or any accessory muscle activation. There is no chest wall tenderness. Breath sounds are heard bilaterally. Few crackles in the left base. No evidence of any consolidation. Breath sounds are slightly diminished in the bases bilaterally BREASTS: Deferred. HEART: The PMI is in the 5th left intercostals space just inthe midclavicular line. No palpable precordial events. S1 and S2 are normal. No S3 or S4 heard. No pericardial rub or any click heard. Short systolic murmur in the left sternal border. ABDOMEN: Abdomen slightly distended. Free fluid present. Drainage catheter seems to be draining some pus. Bowel sounds are normally heard. : Deferred. RECTAL: Deferred. LYMPHATIC: No lymphadenopathy noted in the neck or groin. EXTREMITIES: 2+ pitting edema both lower extremities. No cyanosis. MUSCULOSKELETAL: No acute joint deformities or swelling. SKIN: There are no significant scars or skin rash noted. NEUROPSYCHIATRIC: The patient is alert and oriented x3. Appears to be in a good mood. The higher functions are grossly within normal limits. No tremors or rigidity noted. Data : 12/17/19 05:40 12/17/19 05:40 Micro: Microbiology 12/15/19 13:58 Occult Blood (FIT) - Final Stool Abnormal lab results 12/15/19 12/15/19 12/16/19 Range/Units 03:25 13:27 05:37 RBC 3.36 L (4.1-5.3) 10^6/uL Hgb 9.4 L (11.5-15.3) g/dL Hct 30.0 L (37.0-47.0) % RDW 17.9 H (12.1-15.1) % MPV 11.5 H (7.4-10.4) fL Carbon Dioxide (22-29) mmol/L Calculated Osmolality (285-295) mOsm/kg Calcium (8.5-10.5) mg/dL Iron 36 L (37-145) ug/dL Unsat Iron Binding 111 L (112-347) ug/dL Ferritin 338 H (15-150) ng/mL Crossmatch See Detail 12/16/19 Range/Units 05:37 RBC (4.1-5.3) 10^6/uL Hgb (11.5-15.3) g/dL Hct (37.0-47.0) % RDW (12.1-15.1) % MPV (7.4-10.4) fL Carbon Dioxide 30 H (22-29) mmol/L Calculated Osmolality 284 L (285-295) mOsm/kg Calcium 8.4 L (8.5-10.5) mg/dL Iron (37-145) ug/dL Unsat Iron Binding (112-347) ug/dL Ferritin (15-150) ng/mL Crossmatch A&P Assessment and plan (1) Abnormal exercise myocardial perfusion study: In view of the presenting symptoms and the abnormal objective findings, in order to further evaluate the coronary status, patient may benefit from a cardiac catheterization. However because of the multiple comorbidities and also since the patient is fairly stable with no specific symptoms of coronary insufficiency at this time, it might be appropriate to hold off on any invasive/interventional procedures at this time. Once her medical condition stabilized, we may consider doing further evaluation. In the meanwhile, it may be appropriate to optimize the medical treatment. I discussed with Dr. Guaman. Her source of bleeding is not clear at this time. It might be appropriate to give her a trial of antiplatelet drug namely Plavix to see how she tolerates. I may take her off the aspirin at this time. If the hemoglobin remains stable, she may be discharged home with the Plavix Status: Acute Code(s): R94.39 - Abnormal result of other cardiovascular function study (2) Non-ST elevation myocardial infarction (NSTEMI): Will discontinue the aspirin and to a trial of Plavix. If she can tolerate, we may continue this medication. Will monitor the hemoglobin closely Status: Acute Code(s): I21.4 - Non-ST elevation (NSTEMI) myocardial infarction (3) Aneurysm of iliac artery: Patient may require endovascular intervention for the aneurysm, once the medical conditions are properly treated. Till then, we may try to optimize her medical treatment Status: Acute Code(s): I72.3 - Aneurysm of iliac artery (4) Dyslipidemia: Advised to continue on the current medications. Will have a follow-up evaluation as scheduled Status: Acute Code(s): E78.5 - Hyperlipidemia, unspecified (5) Anemia: Patient may benefit from couple of units of blood transfusion to keep the hemoglobin between 9 and 10. Work-up of the anemia as per the primary Status: Acute Qualifiers: Anemia type: unspecified type Qualified Code(s): D64.9 - Anemia, unspecified Code(s): D64.9 - Anemia, unspecified (6) Peripheral edema: This could be multifactorial. The anemia, hypoalbuminemia, ascites, CHF, etc. are contributing factors. May need to have close monitoring of the electrolytes and judicious use of diuretics. I may give IV Lasix and discontinue the p.o. Lasix-Lasix 40 mg IV every 12 hours and potassium 20 mEq p.o. twice daily Continue on this current medication. Repeat BMP in the morning Status: Acute Code(s): R60.9 - Edema, unspecified (7) Essential hypertension, benign: May start the patient on HADLEY inhibitor namely lisinopril 10 mg p.o. now 1 daily, for better control of the blood pressure. Blood pressure needs to be closely monitored. Status: Acute Code(s): I10 - Essential (primary) hypertension (8) Sinus bradycardia: Patient appears to have sinus bradycardia. Currently she is not any medication to cause the bradycardia. We may closely monitor the heart rate on the telemetry. Also will check on the TSH Status: Acute Code(s): R00.1 - Bradycardia, unspecified Additional A&P Information Patient appears to clinical progress, further recommendations will be made. Thank you for the opportunity to eval this patient make these recommendations Attestations Medical Necessity Statement*: Patient requires continued hospital stay for close monitoring and further management Coding Level of Care Code Acute Pulp Machine Operator for [facility] Diagnoses Abnormal exercise myocardial perfusion study R94.39 Non-ST elevation myocardial infarction (NSTEMI) I21.4 Aneurysm of iliac artery I72.3 Dyslipidemia E78.5 Anemia D64.9 Anemia type: unspecified type Peripheral edema R60.9 Essential hypertension, benign I10 Sinus bradycardia R00.1
[2019-12-16 15:48] VITALS: BP 130/60; PULSE 62; RESP 16; TEMP 36.6; O2SAT 97
[2019-12-16 17:42] LABS: Thyroid Stimulating Hormone 3.66 uIU/mL (0.27-4.20)
[2019-12-16 19:55] VITALS: BP 120/66; PULSE 57; RESP 18; TEMP 36.6; O2SAT 98
[2019-12-16] MEDS: latanoprost 0.005% Op Soln 2.5 mL Btl 1 DROP EYE-BOTH (20:50)
[2019-12-16] MEDS: atorvastatin 40 mg Tablet 20 MG PO (20:52)
[2019-12-16] MEDS: clopidogrel 75 mg Tablet 150 MG PO (20:52)
[2019-12-17] VITALS: BP 130/80; PULSE 65; RESP 18; TEMP 36.7; O2SAT 95
[2019-12-17] MEDS: FUROsemide 10 mg/mL SDV 4mL 40 MG IVP ×2 (01:33→15:19)
[2019-12-17 04:00] VITALS: BP 122/80; PULSE 85; RESP 19; TEMP 36.7; O2SAT 95
[2019-12-17 06:41] LABS: Basophils # 0.1 10^3/uL (0.0-0.1); Basophils % 1.5 %; Eosinophils # 0.2 10^3/uL (0.0-0.8); Eosinophils % 2.7 %; Hematocrit 30.1 % (37.0-47.0); Hemoglobin 9.6 g/dL (11.5-15.3); Lymphocytes # 1.5 10^3/uL (0.8-4.8); Lymphocytes % 21.6 %; Mean Corpuscular HGB Conc 31.9 g/dL (30.0-36.0); Mean Corpuscular Hemoglobin 28.2 pg (28.0-34.0); Mean Corpuscular Volume 88.5 fL (81-99); Mean Platelet Volume 11.4 fL (7.4-10.4); Monocytes # 0.7 10^3/uL (0.2-0.9); Monocytes % 10.4 %; Neutrophils # 4.5 10^3/uL (1.8-7.7); Neutrophils % 63.2 %; Nucleated Red Blood Cells % 0 %; Platelet Count 312 10^3/cmm (130-400); Red Cell Distribution Width 17.4 % (12.1-15.1); White Blood Count 7.1 10^3/uL (4.0-10.0)
[2019-12-17 07:07] LABS: Anion Gap 14.6 (5-19); Blood Urea Nitrogen 13 mg/dL (8-23); Calcium 8.7 mg/dL (8.5-10.5); Carbon Dioxide 32 mmol/L (22-29); Chloride 98 mmol/L (98-107); Glucose 97 mg/dL (74-106); Osmolality Calculated 288 mOsm/kg (285-295); Potassium 3.6 mmol/L (3.5-5.1); Sodium 141 mmol/L (136-145)
[2019-12-17 07:37] VITALS: BP 142/54; PULSE 58; TEMP 36.8; O2SAT 92
[2019-12-17] MEDS: pantoprazole DR 40 mg Tablet PO ×2 (10:15→17:19)
[2019-12-17] MEDS: metroNIDAZOLE 500 MG Tablet PO ×2 (10:16→15:19)
[2019-12-17 11:31] VITALS: BP 150/66; PULSE 58; RESP 18; TEMP 36.9; O2SAT 94
[2019-12-17] MEDS: cefTRIAXone 2,000 MG in sodium chloride 0.9% (plus) 50 ML 100 MG IV (12:34)
--- NOTE | 2019-12-17 13:20 | P.PN_ITS ---
Subjective Subjective: Interval history: The hemoglobinThe patient is tolerating the Plavix so far. Hemoglobin is better today. Patient denies any chest pain or shortness of breath. No new symptoms. No fever or chills. Medications: Reviewed: Yes Medication Review Details: Current Medications Acetaminophen (Tylenol) 650 mg PO QID PRN PRN Reason: Fever Or Pain Albuterol/Ipratropium (Duoneb) 3 ml INHALATION Q4H PRN PRN Reason: SHORTNESS OF BREATH Atorvastatin Calcium (Lipitor) 20 mg PO BEDTIME [facility] Last Admin: 12/16/19 20:52 Dose: 20 mg Documented by: Clopidogrel Bisulfate (Plavix) 75 mg PO DAILY [facility] Last Admin: 12/17/19 15:19 Dose: 75 mg Documented by: Furosemide (Lasix) 40 mg IVP Q12H [facility] Last Admin: 12/17/19 15:19 Dose: 40 mg Documented by: Ceftriaxone Sodium 2,000 mg/ (Sodium Chloride) 50 mls @ 100 mls/hr IV Q24H [facility] Last Admin: 12/17/19 12:34 Dose: 100 mls/hr Documented by: Latanoprost (Xalatan) 1 drop EYE-BOTH BEDTIME [facility] Last Admin: 12/16/19 20:50 Dose: 1 drop Documented by: Metronidazole (Flagyl Tab) 500 mg PO TID [facility] Last Admin: 12/17/19 15:19 Dose: 500 mg Documented by: Morphine Sulfate (Morphine) 4 mg IVP Q4H PRN PRN Reason: SEVERE PAIN Ondansetron HCl (Zofran) 4 mg IVP Q6H PRN PRN Reason: NAUSEA AND VOMITING Ondansetron HCl (Zofran) 4 mg IVP Q2M PRN PRN Reason: NAUSEA Pantoprazole Sodium (Protonix) 40 mg PO BID [facility] Last Admin: 12/17/19 17:19 Dose: 40 mg Documented by: Potassium Chloride (Klor-Con 10) 20 meq PO BID [facility] Last Admin: 12/17/19 17:19 Dose: 20 meq Documented by: Vitals/I&O/Wt Last Vital Signs Temp 98.5 F 12/17/19 11:31 Pulse 58 L 12/17/19 11:31 Resp 18 12/17/19 11:31 BP 150/66 12/17/19 11:31 Pulse Ox 94 12/17/19 11:31 12/16/19 12/17/19 12/17/19 22:59 06:59 14:59 Intake Total 240 / 1010 480 / 480 Output Total 725 / 1025 2650 / 3675 650 / 650 Balance -485 / -15 -2650 / -2665 -170 / -170 Physical Exam Narrative: EXAM NARRATIVE: GENERAL: The patient is alert and oriented times three. Not in any acute distress. HEENT: Moderate pallor,no icterus or lymphadenopathy. Oral cavity: There are no mucous membrane lesions. NECK: Trachea appears to be central. No masses noted. No JVD or thyromegaly appreciated. No carotid bruit. RESPIRATORY: Chest is symmetrical. No intercostals muscle retraction or any accessory muscle activation. There is no chest wall tenderness. Breath sounds are heard bilaterally. No rales or rhonchi. BREASTS: Deferred. HEART: The PMI is in the 5th left intercostals space just inthe midclavicular line. No palpable precordial events. S1 and S2 are normal. No S3 or S4 heard. No pericardial rub or any click heard. Short systolic murmur in the left sternal border. ABDOMEN: Abdomen slightly distended. Drainage catheter seems to be draining some pus. Bowel sounds are normally heard. : Deferred. RECTAL: Deferred. LYMPHATIC: No lymphadenopathy noted in the neck or groin. EXTREMITIES: 1-2+ pitting edema both lower extremities. No cyanosis. MUSCULOSKELETAL: No acute joint deformities or swelling. SKIN: There are no significant scars or skin rash noted. NEUROPSYCHIATRIC: The patient is alert and oriented x3. Appears to be in a good mood. The higher functions are grossly within normal limits. No tremors or rigidity noted. Data : 12/17/19 05:40 12/17/19 05:40 Other Labs: Abnormal lab results 12/17/19 12/17/19 Range/Units 05:40 05:40 RBC 3.40 L (4.1-5.3) 10^6/uL Hgb 9.6 L (11.5-15.3) g/dL Hct 30.1 L (37.0-47.0) % RDW 17.4 H (12.1-15.1) % MPV 11.4 H (7.4-10.4) fL Carbon Dioxide 32 H (22-29) mmol/L A&P Assessment and plan (1) Abnormal exercise myocardial perfusion study: In view of the presenting symptoms and the abnormal objective findings, in order to further evaluate the coronary status, patient may benefit from a cardiac catheterization. However because of the multiple comorbidities and also since the patient is fairly stable with no specific symptoms of coronary insufficiency at this time, it might be appropriate to hold off on any invasive/interventional procedures at this time. Once her medical condition stabilized, we may consider doing further evaluation. In the meanwhile, it may be appropriate to optimize the medical treatment. We will continue the Plavix. Since the patient has no specific symptoms of coronary insufficiency, we may hold off on the invasive work-up at this point. If he continues to remain stable, may be discharged home tomorrow from a cardiac standpoint. We will see her in the office in 2 weeks. We will make the decision on further work-up at that point. Status: Acute Code(s): R94.39 - Abnormal result of other cardiovascular function study (2) Non-ST elevation myocardial infarction (NSTEMI): Will discontinue the aspirin and to a trial of Plavix. If she can tolerate, we may continue this medication. Will monitor the hemoglobin closely. Continue Plavix 75 mg p.o. daily Status: Acute Code(s): I21.4 - Non-ST elevation (NSTEMI) myocardial infarction (3) Aneurysm of iliac artery: Patient may require endovascular intervention for the aneurysm, once the medical conditions are properly treated. Till then, we may try to optimize her medical treatment Status: Acute Code(s): I72.3 - Aneurysm of iliac artery (4) Dyslipidemia: Advised to continue on the current medications. Will have a follow-up evaluation as scheduled Status: Acute Code(s): E78.5 - Hyperlipidemia, unspecified (5) Anemia: Patient may benefit from couple of units of blood transfusion to keep the hemoglobin between 9 and 10. Work-up of the anemia as per the primary Status: Acute Qualifiers: Anemia type: unspecified type Qualified Code(s): D64.9 - Anemia, uns pecified Code(s): D64.9 - Anemia, unspecified (6) Peripheral edema: This could be multifactorial. The anemia, hypoalbuminemia, ascites, CHF, etc. are contributing factors. May need to have close monitoring of the electrolytes and judicious use of diuretics. I may give IV Lasix and discontinue the p.o. Lasix-Lasix 40 mg IV every 12 hours and potassium 20 mEq p.o. twice daily May be started on the p.o. Lasix tomorrow Status: Acute Code(s): R60.9 - Edema, unspecified (7) Essential hypertension, benign: Continue on the lisinopril 10 mg p.o. daily. Status: Acute Code(s): I10 - Essential (primary) hypertension (8) Sinus bradycardia: Patient appears to have sinus bradycardia. Currently she is not any medication to cause the bradycardia. We may closely monitor the heart rate on the telemetry. The TSH was found to be within normal limits Status: Acute Code(s): R00.1 - Bradycardia, unspecified Attestations Medical Necessity Statement*: Patient requires continued hospital stay for close monitoring and further management Coding Level of Care Code Acute [employer] Executive Producer for [facility] Diagnoses Abnormal exercise myocardial perfusion study R94.39 Non-ST elevation myocardial infarction (NSTEMI) I21.4 Aneurysm of iliac artery I72.3 Dyslipidemia E78.5 Anemia D64.9 Anemia type: unspecified type Peripheral edema R60.9 Essential hypertension, benign I10 Sinus bradycardia R00.1
--- NOTE | 2019-12-17 14:10 | P.PN_ITS ---
Subjective Subjective: Interval history: Chelsey reports she feels a little bit better. Less swollen. No specific complaints. Shortness of breath is improving. No chest pain. Medications: Reviewed: Yes Vitals/I&O/Wt Last Vital Signs Temp 98.5 F 12/17/19 11:31 Pulse 58 L 12/17/19 11:31 Resp 18 12/17/19 11:31 BP 150/66 12/17/19 11:31 Pulse Ox 94 12/17/19 11:31 12/16/19 12/17/19 12/17/19 22:59 06:59 14:59 Intake Total 240 / 1010 480 / 480 Output Total 725 / 1025 2650 / 3675 650 / 650 Balance -485 / -15 -2650 / -2665 -170 / -170 Physical Exam Narrative: EXAM NARRATIVE: General exam is no apparent distress Cardiovascular regular rhythm without murmur Lungs clear but with diminished breath sounds at the bases Abdomen is soft with positive bowel sounds Extremities 1+ edema bilaterally. Improved from yesterday Data : 12/17/19 05:40 12/17/19 05:40 A&P Assessment and plan (1) Chest pain: Enzyme elevation consistent with non-ST elevation myocardial infarction Nuclear stress test positive for infarct with khang-infarct ischemia Continue low-dose aspirin, add beta-manolo, continue statin for medical treatment. Plavix 150 mg given yesterday p.o. No evidence of bleeding. Plan on repeating the dose today. Cardiology considering angiogram Status: Acute Qualifiers: Chest pain type: unspecified Qualified Code(s): R07.9 - Chest pain, unspecified Code(s): R07.9 - Chest pain, unspecified (2) Heart failure with preserved ejection fraction: Echocardiogram with EF of 56%, no wall motion abnormalities Lasix IV ordered 40 mg every 12 hours. Creatinine remained stable Status: Acute Code(s): I50.30 - Unspecified diastolic (congestive) heart failure (3) Liver abscess: Continue Rocephin. Drain in place from [facility] Status: Acute Code(s): K75.0 - Abscess of liver Additional A&P Information Anemia, with hemoglobin less than 8 in this patient with angina and non-ST elevation myocardial infarction. Now hemoglobin is 9.4 following 1 unit transfusion. Continue Protonix twice daily secondary to concerns this may be related to GI bleeding. Stool was heme-negative this visit, but heme positive on November 25. She has had a recent colonoscopy which was negative for any pathology. She has not had a previous EGD. She does not appear to be actively bleeding currently. Recent history of liver abscess, question of endocarditis. Old records reviewed. She will continue Rocephin. Flagyl added back in the interim but I do not believe this was intended long-term by her infectious disease specialist Iliac artery aneurysm Hyperlipidemia, currently on statin Discontinue Lovenox for DVT prophylaxis secondary to significant severe anemia and past recent history of heme positive stool. Will continue SCDs. Attestations Medical Necessity Statement*: Needs continued hospital stay for evaluation of non-ST elevation myocardial infarction, as well as continued diuresis secondary to heart failure. Coding Level of Care Code Acute Director Cardiac for [facility] Diagnoses Chest pain R07.9 Chest pain type: unspecified Heart failure with preserved ejection fraction I50.30 Liver abscess K75.0
[2019-12-17] MEDS: clopidogrel 75 mg Tablet PO (15:19)
[2019-12-17 15:24] VITALS: BP 148/63; PULSE 60; RESP 18; TEMP 36.7; O2SAT 96
--- NOTE | 2019-12-17 19:00 | PC.NURSE ---
Introduction of staff and report received, aidet.
[2019-12-17 20:00] VITALS: BP 133/62; PULSE 74; RESP 18; TEMP 37; O2SAT 94
[2019-12-18] VITALS: BP 132/66; PULSE 82; TEMP 37; O2SAT 91
[2019-12-18] MEDS: latanoprost 0.005% Op Soln 2.5 mL Btl 1 DROP EYE-BOTH (01:47)
[2019-12-18] MEDS: lisinopril 10 mg Tablet PO ×2 (01:47→08:08)
[2019-12-18] MEDS: atorvastatin 40 mg Tablet 20 MG PO (01:47)
[2019-12-18] MEDS: metroNIDAZOLE 500 MG Tablet PO ×3 (01:48→14:10)
[2019-12-18 04:00] VITALS: BP 152/79; PULSE 96; RESP 20; TEMP 36.9; O2SAT 91
[2019-12-18 04:33] LABS: Basophils # 0.1 10^3/uL (0.0-0.1); Basophils % 1.9 %; Eosinophils # 0.2 10^3/uL (0.0-0.8); Eosinophils % 3.1 %; Hematocrit 30.9 % (37.0-47.0); Hemoglobin 9.8 g/dL (11.5-15.3); Lymphocytes # 1.8 10^3/uL (0.8-4.8); Lymphocytes % 23.5 %; Mean Corpuscular HGB Conc 31.7 g/dL (30.0-36.0); Mean Corpuscular Hemoglobin 28.2 pg (28.0-34.0); Mean Platelet Volume 10.9 fL (7.4-10.4); Monocytes # 0.8 10^3/uL (0.2-0.9); Monocytes % 10.5 %; Neutrophils # 4.5 10^3/uL (1.8-7.7); Neutrophils % 60.5 %; Nucleated Red Blood Cells % 0 %; Platelet Count 303 10^3/cmm (130-400); Red Blood Count 3.47 10^6/uL (4.1-5.3); Red Cell Distribution Width 17.2 % (12.1-15.1); White Blood Count 7.5 10^3/uL (4.0-10.0)
[2019-12-18 04:50] LABS: Anion Gap 13.5 (5-19); Blood Urea Nitrogen 11 mg/dL (8-23); Calcium 8.2 mg/dL (8.5-10.5); Carbon Dioxide 29 mmol/L (22-29); Chloride 97 mmol/L (98-107); Glucose 100 mg/dL (74-106); Osmolality Calculated 278 mOsm/kg (285-295); Potassium 3.5 mmol/L (3.5-5.1); Sodium 136 mmol/L (136-145)
[2019-12-18] MEDS: FUROsemide 10 mg/mL SDV 4mL 40 MG IVP (06:04)
[2019-12-18 07:25] VITALS: BP 122/71; PULSE 94; RESP 16; TEMP 36.8; O2SAT 93
--- NOTE | 2019-12-18 07:44 | ECG_ITS ---
Measurements Intervals [place] Rate: 93 P: 66 ND: 188 QRS: 81 QRSD: 143 T: -45 QT: 406 QTc: 507 SINUS RHYTHM RIGHT BUNDLE BRANCH BLOCK [120+ ms QRS DURATION, UPRIGHT V1, 40+ ms S IN I/aVL/V4/V5/V6].ANTERIOR MYOCARDIAL INFARCTION [40+ ms Q WAVE AND/OR ST/T ABNORMALITY IN V3/V4], OF INDETERMINATE AGE MODERATE T-WAVE ABNORMALITY, CONSIDER LATERAL ISCHEMIA [-0.1+ mV T WAVE IN I/aVL/V5/V6].MODERATE T-WAVE ABNORMALITY, CONSIDER INFERIOR ISCHEMIA [-0.1+ mV T WAVE IN II/aVF] Compared to ECG 12/15/2019 03:36:50 Myocardial infarct finding now present Possible ischemia now present First degree AV block no longer present T-wave abnormality still present Electronically Signed On 12-18-2019 21:07:03 PATIENT ACCOUNTS COORDINATOR by Dori Gomez M.D. [email or web address]
[2019-12-18] MEDS: clopidogrel 75 mg Tablet PO (08:08)
[2019-12-18] MEDS: pantoprazole DR 40 mg Tablet PO (08:08)
[2019-12-18 11:10] VITALS: BP 100/62; PULSE 86; RESP 14; TEMP 36.7; O2SAT 96
--- NOTE | 2019-12-18 11:47 | P.DS_ITS ---
Discharge Providers Date of Admission: 12/15/19 16:20 Date of Discharge: Date of Discharge: December 18, 2019 Attending Provider at Admission: Anabela Merchant MD Attending Provider at Discharge: Uche Guaman MD Primary Care Provider: Amado Larry Diagnoses at Discharge Discharge Diagnosis (1) Abnormal exercise myocardial perfusion study: Status: Acute Problem details: Plavix, aspirin, statin initiated. (2) Non-ST elevation myocardial infarction (NSTEMI): Status: Acute Problem details: See above. We will follow-up with cardiology 1 week (3) Aneurysm of iliac artery: Status: Acute Problem details: Follow-up with cardiology (4) Dyslipidemia: Status: Acute Problem details: Statin on discharge (5) Anemia: Status: Acute Problem details: Transfused 1 unit packed red blood cells. No evidence of active bleeding. Placed on Protonix. Qualifiers: Anemia type: unspecified type Qualified Code(s): D64.9 - Anemia, unspecified (6) Peripheral edema: Status: Acute Problem details: Greatly improved with diuresis. This was secondary to acute diastolic heart failure (7) Essential hypertension, benign: Status: Acute Problem details: Improved (8) Sinus bradycardia: Status: Acute Problem details: Unchanged Reason for Visit Reason for Visit: Reason For Visit: CHEST PAIN Hospital Course Hospital Course: Chelsey is a 79-year-old white female with history of liver abscesses that was recovering at nursing facility for IV antibiotic treatment who presented with chest discomfort. She was found to have an elevated troponin, and clinical course was consistent with non-ST elevation myocardial infarction. CTA of chest demonstrated no pulmonary embolism. Cardiology was consulted, and believed her event was a non-ST elevation myocardial infarction. She also had complications of significant anemia. Stool had recently been heme positive but on this hospital stay it was heme-negative. She was transfused 1 unit of blood for hemoglobin less than 8, and started on Protonix. During her hospital course secondary to her myocardial infarction Plavix was re-added which she tolerated without any evidence of bleeding. Secondary to her multiple comorbidities, a nuclear stress test was obtained first. This demonstrated a small area of khang-infarct ischemia. Secondary to other active issues it was thought to treat her medically, and bring her back in 1 to 2 weeks to visit with cardiology on the feasibility of angiogram. At discharge she had had no chest discomfort during her hospital stay, and hemoglobin was stable at 9.8. She was also diuresed during her hospital stay secondary to acute diastolic heart failure. Physical Exam Narrative: EXAM NARRATIVE: General exam no apparent distress Cardiovascular regular rate and rhythm without murmur Lungs clear Abdomen is soft positive bowel sounds Extremities no cyanosis clubbing or edema Discharge Data Data Completed and Pending: Completed Studies During Hospitalization Category Date Time Status CT angio chest PE protcl [id number] Stat Cat Scan 12/15/19 00:05 Completed Sestamibi Stress Test Request Routi ne Exams 12/16/19 06:00 Completed XR chest 1V juan j ble [id number] Stat Exams 12/14/19 21:22 Completed NM karol perf SPECT r/s* [id number] Routin e Nuc Med 12/15/19 01:40 Completed CV echo complete* [id number] Urgent Ultrasound 12/15/19 01:40 Completed Labs from last 24 hours 12/18/19 12/18/19 04:24 04:24 WBC 7.5 RBC 3.47 L Hgb 9.8 L Hct 30.9 L MCV 89.0 MCH 28.2 MCHC 31.7 RDW 17.2 H Plt Count 303 MPV 10.9 H Neut % (Auto) 60.5 Lymph % (Auto) 23.5 Boyle % (Auto) 10.5 Eos % (Auto) 3.1 Baso % (Auto) 1.9 Neut # (Auto) 4.5 Lymph # (Auto) 1.8 Boyle # (Auto) 0.8 Eos # (Auto) 0.2 Baso # (Auto) 0.1 Nucleated RBC % (a uto) 0 Nucleated RBCs # 0.0 Sodium 136 Potassium 3.5 Chloride 97 L Carbon Dioxide 29 Anion Gap 13.5 BUN 11 Creatinine 0.7 Glucose 100 Calculated Osmolal ity 278 L Calcium 8.2 L Vitals: Last Vital Signs Temp 98.1 F 12/18/19 11:10 Pulse 86 12/18/19 11:10 Resp 14 12/18/19 11:10 BP 100/62 12/18/19 11:10 Pulse Ox 96 12/18/19 11:10 Discharge Plan Discharge Patient Disposition: Xfer SNF Condition: Stable Prescriptions: New pantoprazole 40 mg Tablet,Delayed Release (Dr/Ec) 40 mg PO BID Qty: 60 RF: 0 furosemide [Lasix] 40 mg tablet 40 mg PO QAM Qty: 30 RF: 0 nitroglycerin 0.4 mg tablet, sublingual 0.4 mg SUBLINGUAL Q5M PRN (Reason: chest pain) Qty: 30 RF: 0 clopidogrel 75 mg Tablet 75 mg PO DAILY Qty: 30 RF: 0 lisinopril 10 mg Tablet 10 mg PO DAILY Qty: 30 RF: 0 Continued latanoprost 0.005 % Drops 1 drp OPHTHALMIC (EYE) DAILY RF: 0 ceftriaxone 2 gram Recon Soln 1 g IV Q24H RF: 0 metronidazole 500 mg Tablet 500 mg PO Q8H RF: 0 lovastatin 20 mg Tablet 20 mg PO DAILY RF: 0 28 mg iron- 800 mcg Tablet 1 tab PO DAILY RF: 0 Preparation H 0.25-14-74.9 % Ointment 1 ea RI PRN PRN (Reason: Hemorrhoids) RF: 0 acetaminophen 325 mg Tablet 650 mg PO QID PRN (Reason: Fever Or Pain) RF: 0 Changed potassium chloride 20 mEq Tablet Extended Release 20 meq PO DAILY Qty: 0 RF: 0 Discontinued aspirin 81 mg Tablet,Chewable 81 mg PO DAILY RF: 0 Discharge Orders: Discharge Order (Routine); Ordered 12/18/19 Ordered By: Uche Guaman Referrals: Kirsty Howard [Family Provider] - Dori Gomez MD [Physician] - 7-10 days Amado Larry [Primary Care Provider] - Discharge Diet: Cardiac Discharge Activity: Resume usual activity Activity Restrictions/Additional Instructions: Follow-up with primary care provider at shelter facility in 3 to 5 days BMP, CBC 3 days Follow-up with cardiology 1 week Discharge Attestations Time Spent in Discharge Care*: greater than 30 min Quality Metrics Clinical Quality Measures During this hospital stay, did patient experience: AMI Clinical Trial Participant: No Contraindication to aspirin (AMI): Aspirin given Contraindication to statin: Statin prescribed Coding Level of Care Code Acute Oceanography Professor for g Fwd Diagnoses Abnormal exercise myocardial perfusion study R94.39 Non-ST elevation myocardial infarction (NSTEMI) I21.4 Aneurysm of iliac artery I72.3 Dyslipidemia E78.5 Anemia D64.9 Anemia type: unspecified type Peripheral edema R60.9 Essential hypertension, benign I10 Sinus bradycardia R00.1
--- NOTE | 2019-12-18 11:49 | PC.SOCIAL ---
Pg 2 of IMM Pg 2 of IMM was explained to and signed by patient, copy was provided, and form placed in chart. She verbalized understanding and had no questions.
[2019-12-18 15:21] VITALS: BP 145/70; PULSE 67; RESP 16; TEMP 36.9; O2SAT 95
[2019-12-18 15:42] VITALS: BP 145/70; PULSE 67; RESP 16; TEMP 36.9; O2SAT 95
== END 2019-12-18 15:42 | disposition skilled nursing facility (03) | DRG 280 ==
LOC: ER 12-15 01:11 → MEDSURG 12-15 01:20
PROVIDERS: Internal Medicine Cardiovascular Disease; Admitting Provider Internal Medicine; Emergency Provider Emergency Medicine; Family Provider Nurse Practitioner Family; PCP Family Medicine; Visit Provider Internal Medicine
DX: I21.4 Non-ST elevation (NSTEMI) myocardial infarction (principal); I50.31 Acute diastolic (congestive) heart failure; I11.0 Hypertensive heart disease with heart failure; I72.3 Aneurysm of iliac artery; E78.5 Hyperlipidemia, unspecified; D64.9 Anemia, unspecified; J44.9 Chronic obstructive pulmonary disease, unspecified; M81.0 Age-related osteoporosis without current pathological fracture; R00.1 Bradycardia, unspecified; Z85.43 Personal history of malignant neoplasm of ovary
CPT/HCPCS: 12345; 36430; 36592; 71045; 71275; 78452; 80048; 80053; 80061; 82274; 82607; 82728; 82746; 83036; 83540; 83550; 83690; 83735; 83880; 84439; 84443; 84484; 85025; 85378; 86850; 86900; 93005; 93017; 93306; 96372; 96375; 99283; A9500; G0378; J0696; J1650; J1940; J2785; J3475; P9016; Q9967

== ENCOUNTER 2020-08-22 13:21 | Outpatient (CLI) | payer MEDICARE, OTHER, SELFPAY ==
[2020-08-22] MEDS: iohexol 350 mg/mL 100 mL Btl IV (13:49)
--- NOTE | 2020-08-22 14:00 | CT_ITS ---
WS: [id number] CTA ABDOMEN TECHNIQUE: Noncontrast plus contrast enhanced CTA of the abdominal aorta with coronal and sagittal re formatted images and additional MIP Images. CLINICAL INFORMATION: iliac artery aneurysm follow up COMPARISON: CT November 25, 2019 DLP: 701.[address] scans at [facility] use at least one of these dose optimization techniques: automat ed exposure control; mA and/or kV adjustment per patient size (includes targeted exams where dose is matched to clinical indication); or iterative reconstruction. FINDINGS: Previously described large abscess in the left hepatic lobe has resolved since the prior examination. Liver is otherwise normal in appearance today. Normal portal vein and splenic vein. Normal pancreas. Normal spleen. Chronic emphysematous changes in the lung bases which are well aerated. Tiny left adr enal nodule likely adenoma measuring 8 mm. Normal GE junction. Advanced calcified atheromatous diseas e abdominal aorta. Mild aneurysmal dilatation infrarenal abdominal aorta measuring 2.4 x 2.1 CM. Irre gular ulcerated atheromatous plaque peripherally. Peripheral mural thrombus. This is unchanged from t he prior examination. Celiac and SMA origins are patent. Small bilateral renal arteries are patent. Normal renal parenchyma l enhancement. No hydronephrosis in either kidney. Both ureters are decompressed. Aneurysmal common iliac arteries bilaterally measuring 2.1 cm on the right and 2.1 cm in the left. No significant changes from previous. No periaortic lymphadenopathy. Pelvic phleboliths. Sigmoid divert iculosis. No evidence of acute diverticulitis. No evidence of small or large bowel obstruction. Fat-c ontaining inguinal hernia. Mild chronic compression superior endplate L5. Slight anterolisthesis L4 o n L5. CT/CT angio abdomen pelvis [id number] IMPRESSION: 1. Aneurysmal common iliac arteries bilaterally unchanged measuring 2.1 cm in the right and and 2.3 cm on the left. This is not significantly changed from pr evious. 2. Slightly aneurysmal infrarenal abdominal aorta measuring 2.4 x 2.1 cm AP b y transverse. Advanced aortic atheromatous disease with peripheral mural thromb us and ulcerated plaque. Dense aortic calcification. 3. Previously described liver abscess has been drained and resolved. 4. Normal bilateral renal parenchymal enhancement. No hydronephrosis. 5. Small left adrenal adenoma measuring 8 mm. 6. Sigmoid diverticulosis. No evidence of acute diverticulitis. 7. No other significant changes from previous.
== END 2020-08-22 13:22 | disposition home or self-care (01) ==
LOC: RAD 13:26
PROVIDERS: PCP Nurse Practitioner Family; Visit Provider Internal Medicine Cardiovascular Disease
DX: I72.3 Aneurysm of iliac artery (principal); K57.30 Diverticulosis of large intestine without perforation or abscess without bleeding; D35.02 Benign neoplasm of left adrenal gland; R06.02 Shortness of breath
CPT/HCPCS: 74174; 80048

== ENCOUNTER 2021-02-28 11:37 | Observation (INO) | payer MEDICARE, OTHER, SELFPAY ==
[2021-02-25 10:20] LABS: Basophils # 0.1 10^3/uL (0.0-0.1); Basophils % 1.3 %; Eosinophils # 0.1 10^3/uL (0.0-0.8); Eosinophils % 1.9 %; Hematocrit 41.6 % (37.0-47.0); Hemoglobin 13.2 g/dL (11.5-15.3); Lymphocytes # 2.3 10^3/uL (0.8-4.8); Lymphocytes % 33.6 %; Mean Corpuscular HGB Conc 31.7 g/dL (30.0-36.0); Mean Corpuscular Hemoglobin 29.1 pg (28.0-34.0); Mean Corpuscular Volume 91.8 fL (81-99); Mean Platelet Volume 10.5 fL (7.4-10.4); Monocytes # 0.5 10^3/uL (0.2-0.9); Monocytes % 7.7 %; Neutrophils # 3.82 10^3/uL (1.8-7.7); Neutrophils % 55.2 %; Nucleated Red Blood Cells % 0 %; Platelet Count 296 10^3/cmm (130-400); Red Blood Count 4.53 10^6/uL (4.1-5.3); Red Cell Distribution Width 13.1 % (12.1-15.1); White Blood Count 6.9 10^3/uL (4.0-10.0)
[2021-02-25 10:39] LABS: Alanine Aminotransferase 18 U/L (0-33); Albumin Level 4.5 g/dL (3.5-5.2); Alkaline Phosphatase 74 IU/L (35-105); Anion Gap 15.5 (5-19); Aspartate Amino Transferase 18 U/L (0-32); Blood Urea Nitrogen 19 mg/dL (8-23); Calcium 9.3 mg/dL (8.5-10.5); Carbon Dioxide 25 mmol/L (22-29); Chloride 96 mmol/L (98-107); Globulin 3.2 g/dL (1.3-4.6); Glucose 90 mg/dL (65-115); Osmolality Calculated 276 mOsm/kg (285-295); Potassium 4.5 mmol/L (3.5-5.1); Sodium 132 mmol/L (136-145); Total Bilirubin 0.3 mg/dL (0.15-1.2); Total Protein 7.7 g/dL (6.6-8.7)
[2021-02-28] VITALS (43 sets, daily range): BP systolic 49–146; BP diastolic 27–84; PULSE 37–76; RESP 14–18; TEMP 36.5–36.9; O2SAT 95–100; BMI 27.6
--- NOTE | 2021-02-28 07:30 | XACV_ITS ---
Exam Room: [facility] Ht: 160 cm Wt: 71 kg BSA: 1.79 m2 Gender: Female : 1940 Any Known Allergies: Penicillins Exam Priority: Routine Procedure(s): Procedure Description: Diagnostic procedure Procedure Description: Left ventriculography Procedure Description: Coronary Angiography Diagnostic Cath Status: Elective Diagnostic Findings * Coronary angiography shows right dominance. * This is an 80-year-old white female with a history of hypertension and dyslipidemia presented with complaints of chest pain and shortness of breath. She had a myocardial perfusion imaging revealing areas of fixed and reversible defects in the distribution of all the 3 coronary arteries. Areas of ischemia were found to be small. She also had an episode of heart failure in the hospital where she was admitted with sepsis. She was found to have bilateral iliac artery aneurysm as well. Recently she also had an episode of syncope. In view of her ongoing symptoms and the abnormal objective findings, in order to further evaluate her coronary status, a cardiac catheterization was recommended. Patient underwent left heart catheterization with left and right coronary angiogram and aortogram today. The findings are as follows. * The left main is a short vessel which was found to have around 20% eccentric narrowing. * The left anterior descending artery is a medium caliber vessel which appears to be subtotally occluded after the first diagonal branch. The artery appears to have diffuse disease and grade 3 left to left collaterals. The first diagonal artery is a medium caliber vessel which was found to have a high-grade proximal stenosis of around 85 to 90%. Another tight lesion was noted in the mid segment of the artery as well. It gives of a small to medium caliber side branch proximally. The ostium of this branch was found to have around 90% lesion. The first septal delivery consultant also is a medium caliber vessel with some proximal moderate stenosis. * The circumflex artery is a medium caliber vessel which was found to have mild diffuse disease in the proximal segment. Then the artery appears to bifurcate and gives off 2 obtuse marginal branches. One of the obtuse marginal branches were found to have around 50% narrowing in the mid segment. * The right coronary artery is a medium caliber vessel which appears to be totally occluded at the origin of the first RV branch. Grade 2 kfhv-gm-gueot collaterals were noted filling of the distal segment of the artery. The artery appears to gives off a fairly large sinus jarret branch. Conclusions 1. 80-year-old white female with history of hypertension, dyslipidemia and heart failure, presenting with chest pain and shortness of breath. Abnormal myocardial perfusion imaging. Cardiac colorization revealing the following findings. 2. 1. Mild disease in the distal left main artery. 2. Left and descending artery appears to be subtotally occluded after the first diagonal branch. The artery appears to wrap around the LV apex. Significant left to left collaterals of grade 3. The artery appears to be diffusely diseased. #3 mild to moderate disease in the left circumflex artery. 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 5. LVEDP of 17 mmHg. 6. Moderate diffuse plaques in the abdominal aorta. Bilateral iliac artery aneurysms. I reviewed and discussed the cardiac catheterization data with Dr. Allen. Based on the above angiographic findings, it was thought to be appropriate to consider PCI of the diagonal artery lesions. At this point, Dr. Allen took over further management of this patient.. Recommendations * An aortogram was performed by placing the pigtail catheter in the descending aorta. The abdominal aorta was found to have moderate diffuse plaques. No significant aneurysm were noted. Both common iliac arteries were found to have diffuse irregular aneurysmal dilatation. The maximum diameter was around 2.5 cm on the left side and 2.3 cm on the right side. Just beyond the aneurysmal area, there was a 60% narrowing in the left common iliac artery. Diagnostic RX Recommendation: PCI w/o planned CABG LV EDP: 17 mmHg Left Ventriculography Findings: * The LV gram was not performed because of some technical issues. The LVEDP was around 17 mmHg. * An aortogram was performed by placing the pigtail catheter in the descending aorta. The abdominal aorta was found to have moderate diffuse plaques. No significant aneurysm were noted. Both common iliac arteries were found to have diffuse irregular aneurysmal dilatation. The maximum diameter was around 2.5 cm on the left side and 2.3 cm on the right side. Just beyond the aneurysmal area, there was a 60% narrowing in the left common iliac artery. Pressures Phase:Rest AO : 130 / 55 ( 84 ) @ 5:09:00 AM 128 / 53 ( 83 ) @ 5:09:00 AM LV : 116 / 6 / @ 5:09:00 AM 120 / 4 / @ 5:09:00 AM Valves Phase:DefaultPhase AV : 0.0 @ 3:36:14 PM AV Mean Gradient: 0.0 @ 3:36:14 PM Clinical Evaluation EBL: 5mL-10mL Procedural Details Procedure Consent Obtained. Pre-Procedure Time Out. Identified patient by full name and date of as verbalized by the patient/guarantor. Does the consent match the physician's order: Yes. Accurate & Complete Informed Consent: Yes. Inpatient/Outpatient History & Physical on Chart: Yes. If H&P is completed, is and addenduem needed: No; If yes, is the addendum complete: N/A. Visualize and Verify Site with Patient/Guarantor: N/A. Relevant Radiology Images available: Yes. Pre-op teaching completed and patient verbalized understanding. The risks, benefits, and alternatives of sedation and/or procedure were discussed by physician. The patient agrees to continue. Procedure started. Correct patient, site and procedure confirmed by cath team. Current diagnosis: Chest Pain. PERRLA. Strong, equal hand garage mechanic bilaterally. Lungs clear x 5 lobes. IV Site on Arrival: 20 gauge in the left anticubital. IV Fluids: 0.9% NaCl at KVO. 0 mL infused prior to production laborer. Pre Procedural Pulses: right dorsalis pedis was 1+. Pre Procedural Pulses: left dorsalis pedis was Doppled. Pre Procedural Pulses: bilateral posterior tibial was Doppled. Pre Procedural Pulses: bilateral radial was 2+. Oxygen started at 2liters/min via nasal canula. bilateral groins was prepped with chloroprep then draped in the usual sterile fashion. right radial was prepped with chloroprep then draped in the usual sterile fashion. Physician notified. Baseline sample Acquired. HR: 54 BPM. Physician arrived. Equipment: 6F - Radial. ACIST Manifold Kit Model BT 2000. Cardiac Cath Pack. Heparinized Saline (2 units/mL), 1000 mL bag. Physician scrubbed in. Immediate Pre-Procedure Time Out. Correct Patient: Yes; Correct Procedure: Yes; Correct Site: Yes; Correct Patient Position: Yes; Correct Supplies: Yes; Dried Flammable Prep: Yes; Blood Products Available: No;. Lidocaine 1% infiltrated to the right radial. Arterial access obtained. A 5 gh[place] Ky catheter in over wire. Catheter removed over the exchange wire. Multiple views taken of left coronary artery. Catheter out. A 5 ghanaian JR4 catheter in over wire. Multiple views taken of right coronary artery. Exchange wire inserted. Catheter out. A 5 ghanaian Angled Pig catheter in over wire. Side port of sheath attached to Normal Saline flush at KVO to maintain patency. Catheter out. EDP Sample taken: LV 116/6,19; HR: 56 BPM; SpO2: 100%. Pullback taken: LV 120/4,19; AO 130/55(84); Mean: 0mmHg, Peak to Peak: 0mmHg, SEP: 14sec/min; HR: 54 BPM; SpO2: 100%. Hand injection performed. Wire directed down the descending aorta. Catheter out. 6FR angled pig catheter inserted. Runoff performed of distal aorta at 12ml for a total of 36ml. Catheter out. Wire out. Total IV fluids: 350 mL. No VTE prophylaxis required. PERRLA. Strong, equal hand garage mechanic bilaterally. Post Procedure: Pulses reassessed and unchanged. Bioclusive used to stabilize radial sheath. Contrast type used: Visipaque 320 mgI/mL, 500 mL bottle. Medication's Wasted: Lidocaine 1% = 18 mL. Medication's Wasted: Nitro = 49.8 mg. Medication's Wasted: Heparin = 4000 units. Post-op diagnosis: CAD. Complications: None. Estimated blood loss: 5mL-10mL. Vital chart was stopped. Medication's Wasted: Other = Fentanyl 25 mcg. Procedure completed. Patient transferred by wheelchair to ICU. Access Site Site: Right Radial artery Sheath Size: 6 Fr Hemostasis Success: Successful Procedure Medications Start: 9:27 AM Stop: 9:27 AM Medication: Versed Amount: 1 mg Route: I.V. Start: 9:27 AM Stop: 9:27 AM Medication: Fentanyl Amount: 50 mcg Route: I.V. Start: 9:34 AM Stop: 9:34 AM Medication: 0.9% Saline Amount: 250 ml Start: 9:39 AM Stop: 9:39 AM Medication: Verapamil Amount: 5 mg Route: I.A. Start: 9:41 AM Stop: 9:41 AM Medication: Heparin Amount: 5000 units Route: I.V. Start: 10:02 AM Stop: 10:02 AM Medication: Versed 1 mg and Fentanyl 25 mcg Amount: 1 Route: I.V. I, the attending physician, have reviewed and verified all procedure medications. Yes, all medications given per verbal order History/Risk Factors Hypertension: Yes Dyslipidemia: Yes Peripheral Arterial Disease (PAD): No Myocardial Infarction (OR): No Obesity: No Renal Disease: No Prior Interventions PCI: No CABG: No Valve Surgery: No Report Signatures Finalized by Dr Dori Gomez MD [facility] on 03/05/2021 06:58 PM
[2021-02-28] MEDS: diphenhydrAMINE 50 mg Capsule PO (08:07)
[2021-02-28 08:37] LABS: SARS Covid-2 Antigen Negative (Negative)
--- NOTE | 2021-02-28 09:17 | W.PM.OPSUD ---
Surgery/Procedure H&P Update DATE OF PROCEDURE: February 28, 2021 DATE H&P PERFORMED: 02/17/21 H&P UPDATE INFORMATION: I have reviewed H&P completed within last 30 days, I have examined patient prior to procedure, No changes to prior documentation and Changes to prior documentation as noted here PREOP DIAGNOSIS: ASHD/iliac artery aneurysm PRIMARY INDICATION FOR PROCEDURE: Abnormal myocardial perfusion imaging PLANNED PROCEDURE: Operation Date: 02/28/21 08:30 Proposed Procedures p left Cardiac Catheterization 46133 [id number] r94.39 i73.9(Left) - Dori Gomez MD s Peripheral Diagnostic(Not Applicable) - Dori Gomez MD PATIENT REASSESSED PRIOR TO SEDATION, WITH NO CHANGE NOTED: Yes PHYSICAL EXAM: alert, oriented x 3, clear to auscultation bilaterally and regular rate & rhythm AIRWAY EVAL/ANESTHESIA PLAN: normal airway, ASA II, Monitored Anesthesia, Local Anesthesia, Risks, benefits & alternatives of sedation and/or procedure discussed and Patient agrees to continue as planned
--- NOTE | 2021-02-28 10:40 | PC.NURSE ---
Received patient from vp lab into ICU-04. Bedside report given. Patient transferred to ICU bed et placed on monitor. Patient with right radial sheath that is connected to a pressure line. Wrist immobilizer in place. Patient is alert et oriented, able to move all extremities. Patient oriented to ICU et provided with call light. Will bring patient's into room from waiting room. Patient instructed to keep wrist immobilized et to notify patient's RN if wrist has any change in sensation, color or temp of right hand.
--- NOTE | 2021-02-28 13:29 | XACV_ITS ---
Exam Room: [facility] Ht: 160 cm Wt: 71 kg BSA: 1.79 m2 Gender: Female : 1940 Any Known Allergies: Penicillins Exam Priority: Routine Procedure(s): Procedure Description: Diagnostic procedure Procedure Description: PCI procedure Procedure Description: Drug Eluting Coronary Stent Procedure Description: PTCA Procedure Description: Coronary Angiography Diagnostic Cath Status: Elective Diagnostic Findings * LM has 0% stenosis. * CX has 0% stenosis. * pLAD to mLAD: Severe 90% stenosis, TANIA: 2 flow. * mLAD to dLAD: Severe 100% stenosis, TANIA: 0 flow. * 1st Diagonal Coronary Artery: Severe 90% stenosis, TANIA: 2 flow. * pRCA to dRCA: Severe 100% stenosis, TANIA: 3 flow. * 3rd OM to dLAD collateralization. * dCIRC to dCIRC collateralization. * Coronary angiography shows right dominance. PCI Indication: Other Interventional Findings * pLAD to mLAD: 90% stenosis treated with Drug Eluting Stent. 0% residual stenosis, TANIA: 3 flow. * 1st Diagonal Coronary Artery: 90% stenosis treated with AB MINI TREK 2.00X20 RX BALLOON, RODRIGUEZ [place] EDWIGE 2.25X26 [facility], and RODRIGUEZ R EDWIGE 2.25X15 [facility]. 0% residual stenosis, TANAI: 3 flow. Conclusions 1. For abnormal stress test and worsening of chest pain heart failure symptoms despite of optimization of medicine patient was brought into the Territory Development Manager.Left main: Luminal irregularitiesLAD is chronically occluded highly calcified vessel in the middleDiagonal is moderate size and caliber vessel which has proximal to mid long calcified 90% stenosisLCx is diffusely diseased moderate size and caliber vessel without significant stenosisRCA is known to be occluded not engaged. 2. There is severe coronary artery disease with two vessel disease. 3. pLAD to mLAD was treated with Drug Eluting Stent. 4. 1st Diagonal Coronary Artery was treated with Balloon and two Drug Eluting Stent. Recommendations * Continue current medical management and risk factor modification. Diagnostic RX Recommendation: PCI w/o planned CABG Pressures Phase:Rest AO : 142 / 52 ( 85 ) @ 9:26:00 AM Clinical Evaluation EBL: 5mL-10mL Procedural Details Procedure Consent Obtained. Pre-Procedure Time Out. Identified patient by full name and date of as verbalized by the patient/guarantor. Does the consent match the physician's order: Yes. Accurate & Complete Informed Consent: Yes. Inpatient/Outpatient History & Physical on Chart: Yes. If H&P is completed, is and addenduem needed: No; If yes, is the addendum complete: N/A. Relevant Radiology Images available: Yes. Visualize and Verify Site with Patient/Guarantor: N/A. The risks, benefits, and alternatives of sedation and/or procedure were discussed by physician. The patient agrees to continue. Procedure started. Correct patient, site and procedure confirmed by cath team. Current diagnosis: Chest Pain. PERRLA. 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 Lungs clear x 5 lobes. IV Site on Arrival: 20 gauge in the left anticubital. IV Fluids: 0.9% NaCl at KVO. 0 mL infused prior to sanitation laborer. Pre Procedural Pulses: bilateral dorsalis pedis was 2+. Pre Procedural Pulses: bilateral posterior tibial was 2+. Pre Procedural Pulses: bilateral radial was 3+. Oxygen started at 2liters/min via nasal canula. bilateral groins was prepped with chloroprep then draped in the usual sterile fashion. right radial was prepped with chloroprep then draped in the usual sterile fashion. Patient has a sheath in place in the Right radial. Will use this sheath for intervention. Physician arrived. Dr. Allen received verbal consent from patient to proceed with test. Baseline sample Acquired. HR: 51 BPM. Equipment: 6F - Radial. Cardiac Cath Pack. ACIST Manifold Kit Model BT 2000. Heparinized Saline (2 units/mL), 1000 mL bag. Physician scrubbed in. Immediate Pre-Procedure Time Out. Correct Patient: Yes; Correct Procedure: Yes; Correct Site: Yes; Correct Patient Position: Yes; Correct Supplies: Yes; Dried Flammable Prep: Yes; Blood Products Available: No;. 6 portuguese XB 3 guide catheter was inserted over the wire. [place] guidewire was advanced through the guide catheter to lesion in the diaganol. Wire out. Guide catheter out. 6 portuguese XB 3.5 guide catheter was inserted over the wire. Everything out. Radial site aborted. Lidocaine 1% infiltrated to the right groin. Arterial access obtained with micropuncture set. 6 portuguese XB 3 guide catheter was inserted over the wire. [place] guidewire was advanced through the guide catheter to lesion in the mid LAD. Multiple views taken of left coronary artery. Second cougar wire inserted to the diag. Inflation number : 1 A AB MINI TREK 2.00X20 RX BALLOON was prepped and advanced across the 1st Diag , then inflated to 12 XAVIER for 0:23 seconds. Inflation number: 2 The AB MINI TREK 2.00X20 RX BALLOON was reinflated across the 1st Diag, to 16 XAVIER for 0:15 seconds. Balloon out. Inflation Number : 3 A MDT R EDWIGE 2.25X26 [facility] -Lot Number# [id number] was prepped and advanced across the 1st Diag. The stent was deployed at 16 XAVIER for 0:29 seconds. Stent balloon out over wire. Inflation Number : 4 A MDT R EDWIGE 2.25X15 [facility] -Lot Number#[id number] was prepped and advanced across the 1st Diag. The stent was deployed at 16 XAVIER for 0:25 seconds. Inflation number: 5 The stent balloon was then re-inflated across the 1st Diag to 16 XAVIER for 0:17 seconds. Stent balloon out over wire. [place] wire out. [place] guidewire was advanced through the guide catheter to lesion in the diaganol. Wire out. Results checked. Guide catheter out. TR band placed. Hemostasis obtained. A Suture was successful obtaining hemostatsis at the Right Femoral artery insertion site. Sheath(s) sutured into position with 2-0 silk and sterile 4x4's and Op-site applied over the site. No oozing or signs and symptoms of hematoma noted. Arterial sheath flushed and connected to tranducer and pressure bag with heparinized saline. Post Procedure: Pulses reassessed and unchanged. PERRLA. 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 No VTE prophylaxis required. Medication's Wasted: Lidocaine 1% = 18 mL. Medication's Wasted: Nitro = 49.6 mg. Medication's Wasted: Heparin = 3000 units. Total IV fluids: 100 mL. Contrast type used: Visipaque 320 mgI/mL, 500 mL bottle. Post-op diagnosis: CAD. Complications: None. Estimated blood loss: 5mL-10mL. Vital chart was stopped. Procedure completed. Patient transferred by bed to 1st floor. Access Site Site: Right Femoral artery Sheath Size: 6 Fr Hemostasis Method: Suture Hemostasis Success: Successful Procedure Medications Start: 2:02 PM Stop: 2:02 PM Medication: Fentanyl Amount: 50 mcg Route: I.V. Start: 2:20 PM Stop: 2:20 PM Medication: Versed Amount: 1 mg Route: I.V. Start: 2:27 PM Stop: 2:27 PM Medication: Heparin Amount: 7000 units Route: I.V. Start: 2:32 PM Stop: 2:32 PM Medication: Aggrastat 12.5 mg/250 mL Amount: 12.6 ml Route: I.V. drip Start: 2:32 PM Stop: 2:32 PM Medication: Aggrastat 12.5 mg/250 mL Amount: 35 ml Route: I.V. bolus Start: 2:38 PM Stop: 2:38 PM Medication: Nitrogylcerin Amount: 200 mcg Route: I.A. Start: 3:09 PM Stop: 3:09 PM Medication: Nitrogylcerin Amount: 200 mcg Route: I.A. Start: 3:08 PM Stop: 3:08 PM Medication: Versed Amount: 1 mg Route: I.V. Start: 3:08 PM Stop: 3:08 PM Medication: Fentanyl Amount: 50 mcg Route: I.V. Start: 3:33 PM Stop: 3:33 PM Medication: Plavix Amount: 600 mg Route: P.O. I, the attending physician, have reviewed and verified all procedure medications. Yes, all medications given per verbal order History/Risk Factors Hypertension: Yes Dyslipidemia: Yes Peripheral Arterial Disease (PAD): No Myocardial Infarction ([place]): No Obesity: No Renal Disease: No Prior Interventions PCI: No CABG: No Valve Surgery: No Report Signatures Finalized by Anabela Allen MD on 03/16/2021 09:50 PM
--- NOTE | 2021-02-28 13:45 | PC.NURSE ---
Patient ambulated to bathroom. Voided times 1. Patient to wheelchair with RN assistance. Patient to cath lab tech in [facility] with Lance CALIX. Verbal bedside update/ patient report given.
--- NOTE | 2021-02-28 16:00 | PC.NURSE ---
Patient received from cemetery laborer. Lower right arm swelling was noted from wrist to elbow, with dusky mottled right hand. This was discussed with cemetery laborer nurse to assessed swelling, applied a second TR band and contacted Dr. Allen. Hematoma also noted in right groin. Manual pressure applied to site and noth areas were marked where swelling and hematoma occurred. Dr. Allen came to bedside and also assessed right arm, and right groin. Pulses were checked at the right radial, right ulnar, and right brachial arteries with doppler and and all 3 pulses present. Right DP and PT also present in both feet with doppler.
[2021-02-28] MEDS: morphine 4 mg/mL SDV 1 mL 2 MG IVP (17:06)
--- NOTE | 2021-02-28 18:11 | PM.PN ---
Subjective Subjective: Interval history: I was called by the nurse that Chelsey white has dropped her blood pressure in the 50s and heart rate into 30s. Rapid response was called I arrived by his the bedside and 5 minutes. I believe patient has vagal down before my arrival she was given bolus IV fluid, atropine and started on Levophed. She is was awake but lethargic however in minutes blood pressure improved to 140s over 80s. Heart rate in 70s to 80s. She was alert awake oriented. Patient had right wrist hematoma post PCI at that time around 4 PM Aggrastat was discontinued. She also has mild right groin bruising/small dime size hematoma. Patient has good ulnar and radial pulse. There is no compartment syndrome features. She has good sensory and motor reflexes of the right hand. We have marked the right groin small hematoma and right wrist hematoma. Currently she is not in much pain however she also had morphine on board. I have sent CBC BMP. It appeared to me that she is stable. I spoke to her on the phone and informed her. Patient was also anxious and nervous she thought that something happened her stents but I explained her that her stents are fine it is because her blood is too thin and she developed hematoma which may end up in a bruise and it will resolve. We will continue to monitor her closely. She is on IV fluid as well. Medications: Reviewed: Yes Vitals/I&O/Wt Last Vital Signs Temp 97.8 F 02/28/21 11:04 Pulse 47 L 02/28/21 13:00 Resp 14 02/28/21 17:06 BP 136/60 02/28/21 11:04 Pulse Ox 96 02/28/21 13:00 Weight last 48 hrs Weight 156 lb Physical Exam Narrative: EXAM NARRATIVE: GENERAL: Patient is alert, awake and oriented x3. NECK: No jugular vein distension. HEENT: No cyanosis. No icterus. No pallor. HEART: Regular S1 and S2. No murmur, rub or gallop. LUNGS: Clear to auscultate bilaterally. ABDOMEN: Soft, nontender and nondistended. Positive bowel sounds. No guarding, rebound or tenderness. CENTRAL NERVOUS SYSTEM: Grossly nonfocal. EXTREMITIES: Lower extremities without edema bilaterally. Right groin dime size hematoma. Right wrist hematoma without signs and symptoms of compartment syndrome Data : 02/25/21 10:10 02/25/21 10:10 A&P Assessment and plan (1) CAD (coronary artery disease): Status post 2 drug-eluting stent to diagonal branch which was the culprit vessel. Patient has chronically occluded mid LAD with has left to left collaterals. She has also chronically occluded RCA with [id number] collaterals. Post PCI patient was loaded with 600 mg of Plavix. Status: Acute Qualifiers: Coronary Disease-Associated Artery/Lesion type: [place] artery [place] vs. transplanted heart: [place] heart Associated angina: with unstable angina Qualified Code(s): I25.110 - Atherosclerotic heart disease of [place] coronary artery with unstable angina pectoris (2) Hematoma: Right wrist moderate hematoma. Right hand sensorimotor intact no signs and symptoms of compartment syndrome. Patient has episode of vagal hypotension. Currently her blood pressure is stable. Continue to monitor. Hold all antihypertensive. Will check CBC BMP. Patient and family has been discussed in detail regarding the event and ongoing care. Status: Acute Attestations Medical Necessity Statement*: Patient require continuation hospitalization for above defined care. 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 transplanted heart: [place] heart Associated angina: with unstable angina Hematoma T14.8XXA
[2021-02-28 18:49] LABS: Partial Thromboplastin Time > 250.0 SECONDS (23.9-36.7)
--- NOTE | 2021-02-28 18:55 | PC.NURSE ---
Critical lab of PTT> 250 given to night shift supervisor nurse in report. Did not call physician as we are awaiting CBC results.
[2021-02-28 18:59] LABS: Basophils # 0.1 10^3/uL (0.0-0.1); Basophils % 0.7 %; Eosinophils # 0.2 10^3/uL (0.0-0.8); Eosinophils % 1.9 %; Hematocrit 33.8 % (37.0-47.0); Hemoglobin 11.1 g/dL (11.5-15.3); Lymphocytes # 4.4 10^3/uL (0.8-4.8); Lymphocytes % 34.7 %; Mean Corpuscular HGB Conc 32.8 g/dL (30.0-36.0); Mean Corpuscular Hemoglobin 30.6 pg (28.0-34.0); Mean Corpuscular Volume 93.1 fL (81-99); Mean Platelet Volume 11.2 fL (7.4-10.4); Monocytes % 7.5 %; Neutrophils # 6.91 10^3/uL (1.8-7.7); Neutrophils % 54.9 %; Nucleated Red Blood Cells % 0 %; Platelet Count 234 10^3/cmm (130-400); Red Blood Count 3.63 10^6/uL (4.1-5.3); Red Cell Distribution Width 13.2 % (12.1-15.1); White Blood Count 12.6 10^3/uL (4.0-10.0)
[2021-02-28 19:10] LABS: Anion Gap 13.1 (5-19); Blood Urea Nitrogen 20 mg/dL (8-23); Carbon Dioxide 21 mmol/L (22-29); Chloride 104 mmol/L (98-107); Glucose 87 mg/dL (65-115); Osmolality Calculated 280 mOsm/kg (285-295); Potassium 4.1 mmol/L (3.5-5.1); Sodium 134 mmol/L (136-145)
--- NOTE | 2021-02-28 19:35 | PC.NURSE ---
Received bedside report from Dr Allen and YOGI Kaiser. Patient is s/p [facility] with right femoral and right radial access. Patient has major bruising to right wrist to include hand. Pulses palpable but weak. SpO2 to right hand is 100%. Right extremity is cool and painful to touch. Right groin has area marked for earlier hematoma formation which appears to be resolved at this time. Area to right groin is currently soft and mildy tender per patient. Discussed site care and restrictions. Also discussed need for ptt to be less than 45 prior to sheath removal. Current ptt at this time is >250. Next ptt draw scheduled for 2129. Patient verbalized complete understanding to the discussions. Patient VS WNL at this time. Patient provided food upon her request. Patient tolerating well at this time. No additional signs of distress noted.
--- NOTE | 2021-02-28 20:02 | PC.NURSE ---
At 1708 a rapid response was called overhead as patient's heart rate decreased to 30's and she became hypotensive. Dr. Allen was called by phone to report drop in HR and & BP. Dr. Allen stated he was on his way . Staff arrived in support of rapid response. Patient was arousable and ox3. Patient complaint of continued pain in right wrist and hand. Atropine 0.5mg IVP was given for bradycardia. IV NS was intiated for low BP at 999ml/hr. IV Levophed waas taken from crash crat and started at 8mcg/mhr.Patient reposnded well to meds . cedric Allen was at bedside he assessed patient for chest pain, right arm circulation and re assessed the patient's hematoma in right groin. .
--- NOTE | 2021-02-28 20:29 | PC.NURSE ---
Patient's right wrist still has weak but palpable pulse. Discoloration improving and extremity beginning to warm. Patient reports pain resolving to right wrist as well. Patient has tr band and sheath with pressure bag attached to right groin. No increased hematoma at this time.
[2021-02-28] MEDS: sodium chloride 0.9% 1,000 ML 100 ML IV (20:50)
--- NOTE | 2021-02-28 21:52 | PC.NURSE ---
TR band remains in place to right wrist. Color improving. Patient reports pain improving to site. Sheath remains in place to right groin with pressure bag attached. Hematoma to right groin continues to resolve. Dr Allen is aware that it exists. Dr Allen report to this RN to make sure PTT was <45 prior to sheath and tr band removal.
[2021-02-28 23:14] LABS: Partial Thromboplastin Time 27.8 SECONDS (23.9-36.7)
[2021-03-01] VITALS (30 sets, daily range): BP systolic 99–157; BP diastolic 42–77; PULSE 57–110; RESP 18–20; TEMP 37.2–37.4; O2SAT 95–97
--- NOTE | 2021-03-01 00:16 | PC.NURSE ---
Received PTT from lab at 2250 with value of 27.8. Initiated sheath removal at 2330 per protocol. Hemostasis achieved immediately. Maintained pressure for 20min expressing previously formed hematoma of which Dr Allen is aware of and has seen prior to shift change. VS remained WNL as documented. Patient tolerated sheath removal well and only c/o mild pain during procedure. TR band removed from right wrist at this time. Right hand and wrist free from hematoma. There is extensive bruising observed to right wrist and hand. Patient does c/o pain to right wrist with touch and movement. No additional s/s of bleeding or hematoma formation to either access site. Instructed patient on site care and restrictions. Patient verbalized complete understanding. Informed patient of need to remain in bed for an additional six hours and she stated, that is good because I would like to get about 6 hours of sleep. Patient has been pleasant and cooperative. Informed Dr Allen of patient's outcome.
--- NOTE | 2021-03-01 02:25 | PC.NURSE ---
Dressings to right wrist and right groin remains c,d,i at this time. No s/s of bleeding or hematoma formation observed. Patient conitnue to report tenderness to right wrist but overall beginning to feel better. VS remains WNL at documented.
--- NOTE | 2021-03-01 04:27 | PC.NURSE ---
Dressings to right wrist and right groin remain c,d,i with no s/s of bleeding or hematoma formation observed. Right wrist continues to improve steep tender to touch. No other distress observed. VS as documented.
--- NOTE | 2021-03-01 05:38 | PC.NURSE ---
Patient pulled out IV during sleep. Found catheter intact. Patient refusing at this time to have replaced stating, I am supposed to go home today.
[2021-03-01 06:06] LABS: Basophils # 0.1 10^3/uL (0.0-0.1); Basophils % 0.5 %; Eosinophils # 0.1 10^3/uL (0.0-0.8); Eosinophils % 1.2 %; Hematocrit 39.3 % (37.0-47.0); Lymphocytes # 0.4 10^3/uL (0.8-4.8); Lymphocytes % 3.7 %; Mean Corpuscular HGB Conc 30.5 g/dL (30.0-36.0); Mean Corpuscular Volume 94.9 fL (81-99); Monocytes # 0.7 10^3/uL (0.2-0.9); Monocytes % 7.1 %; Neutrophils # 8.74 10^3/uL (1.8-7.7); Neutrophils % 87.2 %; Nucleated Red Blood Cells % 0 %; Platelet Count 209 10^3/cmm (130-400); Red Blood Count 4.14 10^6/uL (4.1-5.3); Red Cell Distribution Width 13.3 % (12.1-15.1)
--- NOTE | 2021-03-01 06:22 | PC.NURSE ---
Assisted patient up to bathroom. Patient tolerated very well. Dressings to right wrist and right groin remain c,d,i. Bruising observed. No active bleeding or new hematoma formation observed. Instructed patient on site care and restrictions. Patient verbalized understanding by stating my gets to do dishes for a few days. HR and BP WNL as documented.
[2021-03-01 06:25] LABS: Anion Gap 14.2 (5-19); Blood Urea Nitrogen 22 mg/dL (8-23); Calcium 8.5 mg/dL (8.5-10.5); Carbon Dioxide 20 mmol/L (22-29); Chloride 105 mmol/L (98-107); Glucose 94 mg/dL (65-115); Osmolality Calculated 283 mOsm/kg (285-295); Potassium 4.2 mmol/L (3.5-5.1); Sodium 135 mmol/L (136-145)
--- NOTE | 2021-03-01 09:06 | PC.NUTR ---
Nutrition screening indicating consult pending. Spoke with nursing and unable to identify cause or source for RD consult at this time. Will follow-up as appropriate as assess at LOS or as needed per policy. RD available for consult as needed.
--- NOTE | 2021-03-01 09:08 | PC.CHAP ---
Pastoral Care Encounter/Spiritual Assessment Type of Contact [] Declined professor of literacy visit [] Patient/Family/Request visit [] Outpatient visit [] Follow-up visit [] Physician referral [] Code/Alert [x] Routine visit [] Staff referral [] Actively dying [] Patient sleeping [] Family support [] [] Out of room [] Palliative care [] [] Receiving care in room [] Pre-surgical visit [] Trauma [] Long length of stay [] ICU visit [] Other: Relational/Emotional Strength [x] Patient feels connected with others/family/visitors/staff [] Distress [] Loneliness/isolation [] Abandonment Spirituality of Patient [x] Person of Sera [] Attends Sikhism of their Sera [x] Believes in Prayer [] Reads Bible or Mu-Ism materials [] There are Spiritual issues to be addressed Metals Sales Representative Interventions [x] Prayer [x] Active listening [x] Non-anxious presence [x] Spiritual/emotional support [] Crisis/trauma care [] Spiritual counseling [] Bereavement support [] Provided bereavement packet [] Provided Bible/devotional materials [] Provided toy/stuffed animal, coloring book to patient or family member [] Provided Communion [] Anointing/[place] [] Salvation [x] Completed spiritual assessment [] Other: Impact on Illness or Injury [] Angry [] Fearful [] Anxious [] Often cries [] Exhaustion [] Unable to work [] Unable to attend samaritan [] Unable to walk/stand [] Unable to read [] Unable to drive [] Unable to eat/drink [] Unable to sleep [] Unable to be with family [] Patient intubated [] Other: Summary Pt easy to speak with. Looking forward to hopefully being released today. She did express some concern regarding routine daily task that she will not be able to accomplish for awhile. Metals Sales Representative explored this issue with Pt and she stated she had started paperwork for in home help prior to her hosptial stay and is confident she will be able to complete it once she is home. She resides with a spouse, disabled, but she does have a support network. She is a person of sera but has not attended services for some time for various reasons. We concluded our visit with prayer. Time spent with patient 15 min
--- NOTE | 2021-03-01 09:10 | PM.PN ---
Subjective Subjective: Interval history: Patient is doing well this morning. And is eager to go home. No events on telemetry. Medications: Reviewed: Yes Medication Review Details: Current Medications Acetaminophen (Acetaminophen 325 Mg Tablet) 650 mg PO Q6H PRN PRN Reason: MILD PAIN Al Hydrox/Mg Hydrox/Simethicone (Iypj-Ikk-Rvkasdche-[place] 30 Ml Udc) 30 ml PO Q15M PRN PRN Reason: INDIGESTION Al Hydrox/Mg Hydrox/Simethicone (Ktju-Sgh-Uotivmnrm-[place] 30 Ml Udc) 30 ml PO Q15M PRN PRN Reason: INDIGESTION Alprazolam (Alprazolam 0.25 Mg Tablet) 0.25 mg PO TID PRN PRN Reason: ANXIETY Aspirin (Aspirin 81 Mg Ec Tablet) 81 mg PO DAILY [facility] Atorvastatin Calcium (Atorvastatin 40 Mg Tablet) 20 mg PO DAILY [facility] Atropine Sulfate (Atropine 1 Mg/Ml Sdv 1 Ml) 0.5 mg IVP PRN PRN PRN Reason: Symptomatic bradycardia Clopidogrel Bisulfate (Clopidogrel 75 Mg Tablet) 75 mg PO DAILY [facility] Fentanyl (Fentanyl 50 Mcg/Ml Inj 2ml) 50 mcg IVP PRN PRN PRN Reason: Prior to sheath removal Isosorbide Mononitrate (Isosorbide Mononitrate Er 30 Mg Tablet) 30 mg PO DAILY [facility] Lisinopril (Lisinopril 20 Mg Tablet) 20 mg PO DAILY [facility] Magnesium Hydroxide (Magnesium Hydroxide 30 Ml Udc) 30 ml PO DAILY PRN PRN Reason: CONSTIPATION Magnesium Hydroxide (Magnesium Hydroxide 30 Ml Udc) 30 ml PO DAILY PRN PRN Reason: CONSTIPATION Morphine Sulfate (Morphine 4 Mg/Ml Sdv 1 Ml) 2 mg IVP Q2H PRN PRN Reason: SEVERE PAIN Last Admin: 02/28/21 17:06 Dose: 2 mg Documented by: Multivitamins Therapeutic (Multivitamin Therapeutic Tablet) 1 tab PO DAILY [facility] Naloxone HCl (Naloxone 0.4 Mg/Ml Sdv) 0.1 mg IVP Q2M PRN PRN Reason: RESPIRATORY RATE < 8/MIN Nitroglycerin (Nitroglycerin 0.4 Mg Sublingual Tablet) 0.4 mg SUBLINGUAL Q5M PRN PRN Reason: CHEST PAIN Non-Formulary Medication (Calcium Carbonate [Calcium 600]) 600 mg PO DAILY [facility] Temazepam (Temazepam 15 Mg Capsule) 15 mg PO BEDTIME PRN PRN Reason: INSOMNIA Vitals/I&O/Wt Last Vital Signs Temp 99.3 F 03/01/21 07:25 Pulse 85 03/01/21 07:25 Resp 18 03/01/21 07:25 BP 115/63 03/01/21 07:25 Pulse Ox 95 03/01/21 07:25 02/28/21 03/01/21 03/01/21 22:59 06:59 14:59 Intake Total 766.667 / 766.667 360 / 360 Balance 766.667 / 766.667 360 / 360 Weight last 48 hrs Weight 156 lb Physical Exam Narrative: EXAM NARRATIVE: GENERAL: Patient is alert, awake and oriented x3. NECK: No jugular vein distension. HEENT: No cyanosis. No icterus. No pallor. HEART: Regular S1 and S2. No murmur, rub or gallop. LUNGS: Clear to auscultate bilaterally. ABDOMEN: Soft, nontender and nondistended. Positive bowel sounds. No guarding, rebound or tenderness. CENTRAL NERVOUS SYSTEM: Grossly nonfocal. EXTREMITIES: Lower extremities without edema bilaterally. Right groin dime size hematoma. Right wrist hematoma; 1+ radial and ulnar on palpation with good Doppler pulses Data : 03/01/21 04:40 03/01/21 04:40 A&P Assessment and plan (1) CAD (coronary artery disease): Status post 2 drug-eluting stent to diagonal branch which was the culprit vessel. Patient has chronically occluded mid LAD with has left to left collaterals. She has also chronically occluded RCA with [id number] collaterals. -Post PCI patient was loaded with 600 mg of Plavix. -Doing well on aspirin and Plavix. -Continue statin and hold off on beta-blockers for now. -Follow-up with Ms. Althea Juan in [facility] in 1 week -Follow-up with Dr. Gomez in heart care services in 4 to 6 weeks. Status: Acute Qualifiers: Associated angina: with unstable angina Coronary Disease-Associated Artery/Lesion type: [place] artery [place] vs. transplanted heart: [place] heart Qualified Code(s): I25.110 - Atherosclerotic heart disease of [place] coronary artery with unstable angina pectoris (2) Hematoma: Right wrist moderate hematoma. Right hand sensorimotor intact no signs and symptoms of compartment syndrome. Patient has episode of vagal hypotension. Currently her blood pressure is stable. Continue to monitor. - Patient and family has been discussed in detail regarding the event and ongoing care. Status: Acute (3) Essential hypertension, benign: Status: Acute (4) Dyslipidemia: Status: Acute Attestations Medical Necessity Statement*: Stable to be discharged home. Time Spent in Patient Care: Greater than 35 minutes (>than 50% of time spent in counselling and/or direct pt care on unit). Coding Level of Care Code Acute [employer] for [employer] Edmonds Diagnoses CAD (coronary artery disease) I25.110 Associated angina: with unstable angina Coronary Disease-Associated Artery/Lesion type: [place] artery [place] vs. transplanted heart: [place] heart Hematoma T14.8XXA Essential hypertension, benign I10 Dyslipidemia E78.5
[2021-03-01] MEDS: aspirin 81 mg EC Tablet PO (09:59)
[2021-03-01] MEDS: lisinopril 20 mg Tablet PO (09:59)
[2021-03-01] MEDS: isosorbide mononitrate ER 30 mg Tablet PO (10:00)
[2021-03-01] MEDS: multivitamin therapeutic Tablet 1 TAB PO (10:00)
[2021-03-01] MEDS: atorvastatin 40 mg Tablet 20 MG PO (10:00)
[2021-03-01] MEDS: clopidogrel 75 mg Tablet PO (10:03)
--- NOTE | 2021-03-01 15:55 | PC.NURSE ---
discharge instructions given and explained.pt verb understanding of instructions.discharged via w/c to exit.spouse to drive pt home.
--- NOTE | 2021-03-01 15:57 | PC.ADMIT ---
[address] [address] Admission Note: The patient,Chelsey Funes,80 y/o, was given written information regarding hospital policies, unit procedures and contact persons. Patient's smoking status: current every day smoker. Vital Signs - 8 hr 03/01/21 10:56 03/01/21 15:38 Temperature 99.0 F 99.0 F Pulse Rate 76 76 Respiratory Rate 18 18 Blood Pressure 132/64 132/64 Pulse Oximetry 97 97
--- NOTE | 2021-03-01 15:57 | PC.NURSE ---
pts right hand and lower forearm are slightly swollen.bruising noted wrist into right hand.right hand is warm to touch..and ulnar and radial pulses are dopplerable.pt does c/o tenderness.instructed to restrict lifting greater than 5 lbs ,elevate as much as possible.pt verb understanding of instructions.
--- NOTE | 2021-03-05 17:17 | PC.RESP ---
Smoking Cessation and Pulmonary Rehab information sent to patient.
== END 2021-03-01 16:04 | disposition home or self-care (01) ==
LOC: ICU 11:40 → CSU 15:33
PROVIDERS: Admitting Provider Internal Medicine Cardiovascular Disease; PCP Nurse Practitioner Family; Visit Provider Internal Medicine Cardiovascular Disease
DX: I25.110 Atherosclerotic heart disease of native coronary artery with unstable angina pectoris (principal); I10 Essential (primary) hypertension; E78.5 Hyperlipidemia, unspecified; Z79.82 Long term (current) use of aspirin; I25.2 Old myocardial infarction; M81.0 Age-related osteoporosis without current pathological fracture; Z85.43 Personal history of malignant neoplasm of ovary; F17.210 Nicotine dependence, cigarettes, uncomplicated
CPT/HCPCS: 36415; 75625; 80048; 80053; 80500; 85025; 85347; 85610; 85730; 86850; 86870; 86900; 87426; 93452; C1725; C1769; C1874; C1887; C1894; C9600; G0378; J0461; J1644; J2250; J2270; J3010; J3246; J3490; J7030; Q0163; Q9967

== ENCOUNTER → 2022-02-18 10:50 | Outpatient (BNVA) | payer MEDICARE, OTHER, SELFPAY | PROVIDERS: PCP Nurse Practitioner Family; Visit Provider Internal Medicine Cardiovascular Disease | DX: R06.02 Shortness of breath (principal); I72.3 Aneurysm of iliac artery; I10 Essential (primary) hypertension; R94.39 Abnormal result of other cardiovascular function study; Z79.01 Long term (current) use of anticoagulants; Z87.891 Personal history of nicotine dependence; I11.0 Hypertensive heart disease with heart failure; I50.33 Acute on chronic diastolic (congestive) heart failure | CPT/HCPCS: 99214 ==

== ENCOUNTER 2022-04-10 09:40 | Outpatient (CLI) | payer MEDICARE, OTHER, SELFPAY ==
--- NOTE | 2022-04-10 10:00 | CT_ITS ---
WS: [id number] Exam: CT angio abdomen pelvis [id number] Date/Time of Exam: 04/10/2022 10:24 AM Reason For Exam: Iliac artery aneurysm/ abdominal aortic ectasia DLP: 873.[address] scans at [facility] use at least one of these dose optimization techniques: automated e xposure control; mA and/or kV adjustment per patient size (includes targeted exams where dose is matc hed to clinical indication); or iterative reconstruction. Comparison 08/22/2020. CTA of the abdomen and pelvis. There is mild aneurysmal dilatation of the superior abdominal aorta measuring about 2.7 cm at greates t diameter. There is marked atheromatous plaquing of the abdominal aorta with areas of mural thrombus . The SMA and celiac arteries are patent. The bilateral renal arteries are patent. The LINDSAY is also pa tent. 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 This has increased slight ly since prior study. The left common iliac artery measures 2.8 cm at greatest diameter, the right ab out 2.4 cm. 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 The internal and auger supervisor al iliac arteries are patent. The bilateral common femoral arteries are patent. The bilateral proxima l superficial femoral arteries are patent. The lower lung zones were clear. The stomach, liver and spleen are unremarkable. Stable appearing lef t adrenal nodule. Normal right adrenal. The kidneys function and drain normally. The portal vein and IVC are unremarkable. No lymphadenopathy. No free air. The gallbladder is absent. The pancreas is unr emarkable in appearance. Small bowel loops are normal in caliber. No sign of acute appendix. Sigmoid diverticulosis. No sign of acute diverticulitis. No mass or adenopathy in the pelvis. Intact urinary bladder. No destructive bone lesions. Small hiatal hernia. Degenerative changes of the lumbar spine. L4-[address]/CT angio abdomen pelvis [id number] IMPRESSION: 1. Aneurysmal dilatation of the bilateral common iliac arteries slightly increa sed since previous study. The left common iliac measures 2.8 cm at greatest jelena meter, the right 2.4 cm. 2. 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 This is stable 3. The remaining major branches of the abdominal aorta and the remaining major artery branches in the pelvis were patent without critical stenosis or occlusio n. 4. Sigmoid diverticulosis. Small hiatal hernia and other minor nonacute finding s as detailed above.
[2022-04-10 10:31] LABS: Blood Urea Nitrogen 23 mg/dL (8-23)
[2022-04-10] MEDS: iodixanol 320 mg/mL 100mL Btl IV (10:41)
== END 2022-04-10 09:41 | disposition home or self-care (01) ==
LOC: RAD 09:43
PROVIDERS: PCP Nurse Practitioner Family; Visit Provider Internal Medicine Cardiovascular Disease
DX: I72.3 Aneurysm of iliac artery (principal); I50.32 Chronic diastolic (congestive) heart failure; I11.0 Hypertensive heart disease with heart failure; R00.1 Bradycardia, unspecified
CPT/HCPCS: 74174; 82565; 84520

== ENCOUNTER → 2022-04-30 13:07 | Outpatient (BNVA) | payer MEDICARE, OTHER, SELFPAY | PROVIDERS: PCP Nurse Practitioner Family; Visit Provider Thoracic Surgery (Cardiothoracic Vascular Surgery) | DX: I72.3 Aneurysm of iliac artery (principal); Z87.891 Personal history of nicotine dependence | CPT/HCPCS: 99203 ==

== ENCOUNTER → 2022-08-17 10:14 | Outpatient (BNVA) | payer MEDICARE, OTHER, SELFPAY | PROVIDERS: PCP Nurse Practitioner Family; Visit Provider Internal Medicine Cardiovascular Disease | DX: I25.10 Atherosclerotic heart disease of native coronary artery without angina pectoris (principal); I11.0 Hypertensive heart disease with heart failure; I50.32 Chronic diastolic (congestive) heart failure; E78.5 Hyperlipidemia, unspecified; Z87.891 Personal history of nicotine dependence | CPT/HCPCS: 99214 ==

== ENCOUNTER → 2022-12-01 12:16 | Outpatient (BNVA) | payer MEDICARE, OTHER, SELFPAY | PROVIDERS: PCP Nurse Practitioner Family; Visit Provider Thoracic Surgery (Cardiothoracic Vascular Surgery) | DX: I72.3 Aneurysm of iliac artery (principal) | CPT/HCPCS: 99213 ==